=== PATIENT | male | born 1965 | race Caucasian/White ===

== ENCOUNTER → 2016-10-02 | Outpatient (CLI) | payer BC ==
[2015-09-09 08:51] VITALS: BP 100/68
--- NOTE | 2016-10-02 18:08 | MRI ---
Indication: Peroneal nerve disorder and pain. Exam: MRI right knee without contrast . Technique: Routine multiplanar multisequence imaging was performed through the right knee without co ntrast. Findings: The anterior and posterior cruciate ligaments are intact and normal signal intensity throu ghout. There is abnormal linear signal along the posterior horn of the medial meniscus extending to the inferior edge anteriorly. There is some mild linear signal along the posterior horn of the later al meniscus which may slightly extend inferiorly but is more ill-defined. No displaced meniscal frag ment can be seen. The collateral ligaments are normal. The bone marrow signal is normal throughout. There is a small subchondral cyst along the tibial plateau medially and there is a tiny joint effusi on. There is prominent asymmetry of the femoral notch and moderate lateral tilting of the patella wi th diffuse moderate thinning of the patellar cartilage which is most severe along the lateral facet. The surrounding retinacular fibers are intact. Impression: Small horizontal degenerative tear along the posterior horn of the medial meniscus extending mediall y and inferiorly. Moderate meniscoid degenerative change throughout the lateral meniscus with a questionable small sub tle horizontal tear posteriorly . Tiny joint effusion. 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 Reported By:
== END ==
LOC: RAD 09:16
PROVIDERS: ATTEND Neurological Surgery
DX: G57.33 Lesion of lateral popliteal nerve, bilateral lower limbs (principal)
CPT/HCPCS: 73721

== ENCOUNTER 2017-02-16 20:57 | Emergency (ER) | payer BC ==
[2017-02-16 21:06] VITALS: BP 167/99; BMI 33.3
--- NOTE | 2017-02-16 21:58 | DR.GENAD ---
HPI - Complaint/Symptoms Chief Complaint:: PT STATES THAT HIS CHEST HAS FELT TIGHT FOR TWO WEEKS AND HE IS VOMITING Self Treatment fo Chief Complaint: SAW [facility] YESTERDAY AND WAS GIVEN CEFDINIR, STEROID, NASAL SPRAY AND TOLD HE HAD FLUID IN HIS EAR AND SINUS INFECTION - Source History Provided: Patient - Mode of Arrival Mode of Arrival: Ambulatory - Timing Onset of Chief Complaint: 02/14/17 PMH - PMH Past Medical History: Yes Past Medical History: Depression, Diabetes, GERD, Gout, Hypertension, Hypothyroidism, Liver Disease, Sleep Apnea Past Surgical History: Yes Surgical History: Ortho Surgery - Family History History of Family Medical Conditions: Yes Family Medical History: Diabetes Mellitus, [place], Coronary Artery Disease, Heart Failure, Hypertension - Social History Do you use any recreational Drugs:: No - infectious screening Have you traveled outside the country in the last 6 months?: No ROS - Review of Systems Eyes: No Symptoms Reported ENTM: No Symptoms Reported Respiratoy: No Symptoms Reported Cardiovascular: No Symptoms Reported Gastrointestinal/Abdominal: No Symptoms Reported Genitourinary: No Symptoms Reported Neurological: No Symptoms Reported Musculoskeletal: No Symptoms Reported Integumentary: No Symptoms Reported Hematologic/Lymphatic: No Symptoms Reported Endocrine: No Symptoms Reported Psychiatric: No Symptoms Reported All Other Systems: Reviewed and Negative PE - Vital Signs Vitals: Temperature 98.3 F Pulse Rate 61 Respiratory Rate 18 Blood Pressure [Right Arm] 100/68 Blood Pressure [Left Arm] 115/72 Blood Pressure 167/99 O2 Sat by Pulse Oximetry 97 - General Limitations: No Limitations General Appearance: Alert - Head Head Exam: Normal Inspection, Atraumatic - Eyes Eye exam: Normal Appearance, PERRL, EOMI - ENT ENT Exam: Normal Exam External Ear Exam: Normal External Inspection TM/Canal Exam: Bilateral Normal Nose Exam: Normal Nose Exam Mouth Exam: Normal Inspection Throat Exam: Normal Inspection - Neck Neck Exam: Normal Inspection, Full ROM - Chest Chest Inspection: Normal Inspection, Symmetric Chest Wall Rise - Respiratory Respiratory Exam: Normal Lung Sounds Bilat Respiratory Exam: Bilateral Clear to Auscultation - Cardiovascular Cardiovascular Exam: Regular Rate, Normal Rhythm - Abdominal Exam Abdominal Exam: Normal Inspection, Normal Bowel Sounds Abdominal Tenderness: negative: RUQ, RLQ, LUQ, LLQ, Epigastrium, Suprapubic, Diffuse, Mild, Moderate, Severe, Other - Extremities Extremities Exam: Normal Inspection, Full ROM - Back Back Exam: Normal Inspection, Full ROM - Neurologic Neurological Exam: Alert, Oriented X3, CN II-XII Intact - Psychiatric Psychiatric Exam: Normal Affect, Normal Mood - Skin Skin Exam: Warm, Dry, Intact - Diagnosis Discharge Problem: Bronchitis - Discharge Plan Condition: Stable - Follow ups/Referrals Follow ups/Referrals: Scot Whitfield [Primary Care Provider] - 3 days - Instructions
[2017-02-16] MEDS ORDERED: PHENERGAN W/CODEINE 6.25MG/10MG PO ONE (21:59)
[2017-02-16] MEDS ORDERED: ROBITUSSIN AC ONE (22:06)
[2017-02-16] MEDS ORDERED: PHENERGAN W/CODEINE 6.25MG/10MG ONE (22:09)
== END 2017-02-16 22:12 | disposition home or self-care (01) ==
LOC: ER 21:10
DX: J40 Bronchitis, not specified as acute or chronic (principal)
CPT/HCPCS: 99282

== ENCOUNTER → 2017-07-07 | Outpatient (CLI) | payer BC ==
--- NOTE | 2017-07-07 17:50 | MRI ---
MRI of the lumbar spine without gadolinium. Indication: Radiculopathy with lower back pain. Patient has a history of prior lumbar surgery. Technique: Multiplanar MRI images of the lumbar spine was performed without the administration of con there is multilevel discogenic degenerative the skis which will be discussed on a level by level bas is. There is no acute fracture. The conus terminates normally at L1. No evidence of osteomyelitis see n. T11-T12. There is a small circumferential disc bulge with mild facet arthropathy causing mild narrowi ng of the left neural foramen. No central canal stenosis is seen. T12-L1: There is no disc disease. There is moderate facet arthropathy with ligamentum flavum hypertro phy. No neural foraminal or central canal stenosis is seen. L1-L2. There is circumferential disc bulge with central superior extrusion causing mild central canal stenosis. There is mild facet arthropathy and ligamentum flavum hypertrophy. No neural foraminal [place] rowing is seen. L2-L3. No disc disease is seen. There is moderate facet arthropathy. No central canal or neural patricia inal stenosis seen. L3-L4: No disc disease is seen. There is moderate to severe facet arthropathy with marked ligamentum flavum hypertrophy. The right hypertrophy 5 ligament is deforming the sac. There is minimal central c anal stenosis. No neural foraminal stenosis is seen. L4-L5. There is incorporation of disc material without disc disease. There is moderate facet arthropa thy without neural foraminal or central canal stenosis L5-S1. There is fusion across the disc space w ith slight anterolisthesis of L5 on S1. Mild facet arthropathy is present. There is no neural foramin al or central canal stenosis Conclusion: Multilevel discogenic degenerative disease as described above greatest at L1-L2 with supe rior extrusion of the disc. No sequestration is seen. Reported By:
== END ==
LOC: RAD 14:56
PROVIDERS: ATTEND Neurological Surgery
DX: M54.16 Radiculopathy, lumbar region (principal)
CPT/HCPCS: 72148

== ENCOUNTER 2021-11-24 10:49 | Observation (INO) ==
[2021-11-24 11:15] VITALS: BMI 31.6
[2021-11-24 11:17] LABS: BASOPHILS % (AUTO) 0.3 % (0.2-1.0); EOSINOPHILS # (AUTO) 0.3 x10^3/uL (0.0-0.2); EOSINOPHILS % (AUTO) 4.2 % (0.9-2.9); HEMATOCRIT 46.6 % (42.0-54.0); LYMPHOCYTES # (AUTO) 1.3 X10^3/uL (1.3-2.9); LYMPHOCYTES % (AUTO) 20.4 % (21.0-51.0); MEAN CORPUSCULAR HEMOGLOBIN 28.7 pg (27.0-34.0); MEAN CORPUSCULAR HGB CONC 34.3 g/dL (33.0-35.0); MEAN CORPUSCULAR VOLUME 83.6 fL (80.0-100.0); MEAN PLATELET VOLUME 8.6 fL (7.4-11.0); MONOCYTES # (AUTO) 0.8 x10^3/uL (0.3-0.8); MONOCYTES % (AUTO) 13.3 % (0.0-13.0); NEUTROPHILS # (AUTO) 3.9 x10^3/uL (2.2-4.8); NEUTROPHILS % (AUTO) 61.8 % (42.0-75.0); RED BLOOD COUNT 5.57 X10^6/uL (4.7-6.0); RED CELL DISTRIBUTION WIDTH 13.8 % (11.6-16.5); WHITE BLOOD COUNT 6.4 X10^3/uL (3.6-10.0)
--- NOTE | 2021-11-24 11:19 | DR.WEAKNES ---
HPI Time Seen Time Seen by Provider: 11/24/21 11:00 Primary Care Physician Primary Care Physician: KRYSTAL Complaints Chief Complaint:: PT STATES HE WENT TO DR. RICE'S OFFICE WITH C/O NUMBNESS ON THE RIGHT SIDE OF HIS HEAD AND RIGHT ARM. DR. RICE CALLED AND GAVE REPORT TO US ON PT. PT DENIES PAIN. HE STATES HIS BS WAS [address] RICE'S OFFICE AND THAT HE HASN'T TAKEN HIS BS MEDS THIS MORNING BECAUSE HE WAS FEELING NAUSEATED. Self Treatment fo Chief Complaint: NONE Source History Provided: Patient Mode of Arrival Mode of Arrival: Ambulatory Timing Onset of Chief Complaint: 11/24/21 PMH PMH Past Medical History: Yes Past Medical History: Diabetes, Dyslipidemia, Hypertension and Hypothyroidism Past Surgical History: Yes Surgical History: Ortho Surgery Family History History of Family Medical Conditions: Yes Family Medical History: Diabetes Mellitus, Cancer, [place], Coronary Artery Disease and Hypertension Social History Does any household member use tobacco: No Alcohol Use: None Do you use any recreational Drugs:: No Lives With: Family Lives Where: Home Infectious screening In the last 2 months have you had wt loss of >10#?: NO Have you had fever, night sweats or hemotysis?: No Have you traveled outside the country in the last 6 months?: No Isolation: Standard PE Vital Signs Vitals: Temperature 98.8 F Pulse Rate 69 Respiratory Rate 20 Blood Pressure [Right Arm] 128/73 Blood Pressure [Left Arm] 135/76 Blood Pressure 155/89 O2 Sat by Pulse Oximetry 98 ROR Labs Reviewed Result Diagrams: 11/26/21 05:15 11/26/21 05:15 Laboratory: WBC 6.4 X10^3/uL (3.6-10.0) 11/24/21 11:05 RBC 5.57 X10^6/uL (4.7-6.0) 11/24/21 11:05 Hgb 16.0 g/dL (13.5-18.0) 11/24/21 11:05 Hct 46.6 % (42.0-54.0) 11/24/21 11:05 MCV 83.6 fL (80.0-100.0) 11/24/21 11:05 MCH 28.7 pg (27.0-34.0) 11/24/21 11:05 MCHC 34.3 g/dL (33.0-35.0) 11/24/21 11:05 RDW 13.8 % (11.6-16.5) 11/24/21 11:05 Plt Count 146 X10^3/uL (150.0-450.0) L 11/24/21 11:05 MPV 8.6 fL (7.4-11.0) 11/24/21 11:05 Neut % (Auto) 61.8 % (42.0-75.0) 11/24/21 11:05 Lymph % (Auto) 20.4 % (21.0-51.0) L 11/24/21 11:05 [place] % (Auto) 13.3 % (0.0-13.0) H 11/24/21 11:05 Eos % (Auto) 4.2 % (0.9-2.9) H 11/24/21 11:05 Baso % (Auto) 0.3 % (0.2-1.0) 11/24/21 11:05 Neut # (Auto) 3.9 x10^3/uL (2.2-4.8) 11/24/21 11:05 Lymph # (Auto) 1.3 X10^3/uL (1.3-2.9) 11/24/21 11:05 [place] # (Auto) 0.8 x10^3/uL (0.3-0.8) 11/24/21 11:05 Eos # (Auto) 0.3 x10^3/uL (0.0-0.2) H 11/24/21 11:05 Baso # (Auto) 0.0 X10^3/uL (0.0-0.1) 11/24/21 11:05 Absolute Nucleated RBC 0.2 /100WBC 11/24/21 11:05 PT 14.8 SECONDS (11.8-14.3) 11/24/21 11:05 INR Target Range - 11/24/21 11:05 INR 1.20 (0.8-1.3) 11/24/21 11:05 APTT 27.0 SECONDS (22.9-36.5) 11/24/21 11:05 PTT Comment - 11/24/21 11:05 Fibrinogen 447 mg/dL (239-489) 11/24/21 11:05 Sodium 133 mmol/L (136-145) L 11/24/21 11:05 Corrected Sodium 136 mmol/L (136-145) 11/24/21 11:05 Potassium 3.6 mmol/L (3.5-5.1) 11/24/21 11:05 Chloride 100 mmol/L (98-107) 11/24/21 11:05 Carbon Dioxide 24.7 mmol/L (21-32) 11/24/21 11:05 BUN 13 mg/dL (7-18) 11/24/21 11:05 Creatinine 1.00 mg/dL (0.70-1.30) 11/24/21 11:05 Est GFR (MDRD) Af Amer > 60 (>60) 11/24/21 11:05 Est GFR (MDRD) Non-Af > 60 (>60) 11/24/21 11:05 Glucose 224 mg/dL (65-99) H 11/24/21 11:05 POC Glucose (mg/dL) 232 mg/dL (65-99) H 11/24/21 11:07 Calcium 8.3 mg/dL (8.5-10.1) L 11/24/21 11:05 Corrected Calcium 8.9 mg/dL (8.5-10.1) 11/24/21 11:05 Total Bilirubin 0.50 mg/dL (0.2-1.0) 11/24/21 11:05 AST 41 Units/L (15-37) H 11/24/21 11:05 ALT 65 Units/L (12-78) 11/24/21 11:05 Alkaline Phosphatase 101 Units/L (46-116) 11/24/21 11:05 Total Protein 7.4 g/dL (6.4-8.2) 11/24/21 11:05 Albumin 3.2 g/dL (3.4-5.0) L 11/24/21 11:05 Globulin 4.2 g/dL (2.5-4.5) 11/24/21 11:05 Albumin/Globulin Ratio 0.8 Ratio (1.1-2.1) L 11/24/21 11:05 Triglycerides 81 mg/dL (0-150) 11/24/21 11:05 Cholesterol 115 mg/dL (0-200) 11/24/21 11:05 LDL Cholesterol, Calc 74 mg/dL (0-100) 11/24/21 11:05 HDL Cholesterol 25 mg/dL (40-60) L 11/24/21 11:05 Cholesterol/HDL Ratio 4.6 (0.0-5.0) 11/24/21 11:05 SARS-CoV-2 (PCR) Negative (NEGATIVE) 11/24/21 15:34 Opioid Opioid Risk Tool Age (Ward box if 16-45): No History of Preadolescent Sexual Abuse: No Total: 0 Total Score Risk Category: Low Risk Copyright: Bijan GREEN predicting aberrant behaviors
[2021-11-24 11:27] LABS: ALANINE AMINOTRANSFERASE 65 Units/L (12-78); ALBUMIN 3.2 g/dL (3.4-5.0); ALKALINE PHOSPHATASE 101 Units/L (46-116); ASPARTATE AMINO TRANSFERASE 41 Units/L (15-37); BLOOD UREA NITROGEN 13 mg/dL (7-18); CALCIUM 8.3 mg/dL (8.5-10.1); CARBON DIOXIDE 24.7 mmol/L (21-32); CHLORIDE 100 mmol/L (98-107); CHOL/HDL RATIO 4.6 (0.0-5.0); CHOLESTEROL 115 mg/dL (0-200); COR CA(FOR HYPOALB) 8.9 mg/dL (8.5-10.1); COR NA(FOR HYPERGLY) 136 mmol/L (136-145); HDL CHOLESTEROL 25 mg/dL (40-60); SODIUM 133 mmol/L (136-145); TOTAL PROTEIN 7.4 g/dL (6.4-8.2); TRIGLYCERIDES 81 mg/dL (0-150); eGFR NON BLACK RACES > 60 (>60)
--- NOTE | 2021-11-24 11:30 | CT ---
HISTORYRIGHT SIDE NUMBNESSConcern for acute CVA.Study: CT brain without contrastComparison: None available.Technique: Multiple axial images of the brain were obtained from the skull base to the vertex [without] administration of IV contrast.Findings: [No acute intraparenchymal hemorrhage or cytotoxic edema is identified.] [No extra-axial fluid collections are seen.] [No alteration in the attenuation of the brain parenchyma can be identified to suggest acute or subacute ischemic change.] However, if the patients symptoms are clinically & neurologically concerning for an acute ischemic event, then MR imaging of the brain with DWI sequencing could be considered to exclude an acute CVA (based on this patient?s clinical presentation and the specific medical circumstances). If there remains strong concern for an intracranial neoplasm or mass, then follow-up with CT or MR imaging of the brain with IV contrast is recommended for improved inspection (which would be more sensitive for the assessment of any intracranial neoplasia). [The ventricular system is symmetric and nondilated.] The visualized paranasal sinuses and mastoid air cells are relatively clear on this examination as well.IMPRESSION:1. No acute intracranial process or hemorrhage identified.However, if the patients symptoms are clinically & neurologically concerning for an acute ischemic event, then MR imaging of the brain with DWI sequencing could be considered to exclude an acute CVA (based on this patient? s clinical presentation and the neurological assessment).Electronically signed by: MICHEAL CABRALES III (Nov 24, 2021 11:28:58)
--- NOTE | 2021-11-24 11:51 | TELESTROKE ---
[facility] Consult Date of Consult Date of Exam: 11/24/21 Time of Arrival to the ED: 10:49 Allergies Allergies Allergy/AdvReac Type Severity Reaction Status Date / Time quinapril [From Accupril] Allergy Verified 01/06/20 10:27 Vital Signs Vital Signs: Temp Pulse Resp BP BP BP Pulse Ox 01/06/20 14:00 135/76 01/06/20 15:04 128/73 11/24/21 11:09 98.8 F 69 20 155/89 98 11/08/21 15:00 143/74 O2 Del Method 01/06/20 14:00 01/06/20 15:04 11/24/21 11:09 Room Air 11/08/21 15:00 History of Present Illness History of Present Illness: [facility] Tele[facility] Consult Services Date of Service: 11/24/2021 11:06:57 Diagnosis: I63.9 - Cerebrovascular accident (CVA), unspecified mechanism (HCC) Impression: This is a 56 yo M, who presents to the ED with the acute onset of R sided weakness and numbness. [place] like he was wobbling when walking yesterday. He was last known to be in his normal state of health at some point yesterday, but did not have the R sided deficits when going to bed at 9PM. Rather, he woke up with it. On arrival to the ED his symptoms persisted, although no weakness found. BP was found to be 155 systolic. Physical exam revealing for NIHSS of 2 Labs pending Imaging pending official read Etiology of presentation could be from an ischemic event -If official CTH shows no bleed, then allow permissive HTN to 220/110 and below. ASA 81. -MRI brain w/o con -Head and neck vessel imaging -2D echo -Labs for: UA, Utox, thiamine, ammonia, RPR, TSH, B12, ABG, alcohol Metrics: Last Known Well: 11/23/2021 21:00:00 [facility] Notification Time: 11/24/2021 11:06:57 Arrival Time: 11/24/2021 10:49:00 Stamp Time: 11/24/2021 11:06:57 Initial Response Time: 11/24/2021 11:09:04 Symptoms: R sided weakness. NIHSS Start Assessment Time: 11/24/2021 11:10:05 Patient is not a candidate for Thrombolytic. Thrombolytic Medical Decision: 11/24/2021 11:10:07 Patient was not deemed candidate for Thrombolytic because of following reasons: Last Well Known Above 4.[address] head was reviewed. ED Physician notified of diagnostic impression and management plan on 11/24/2021 11:45:29 Advanced Imaging: Advanced Imaging Not Recommended because: Clinical presentation is not suggestion of LVO or Low clinical suspicion of LVO based on presentation Our recommendations are outlined below. Recommendations: Stroke/Telemetry Floor Neuro Checks Bedside Swallow Eval DVT Prophylaxis IV Fluids, Normal Saline Head of Bed 30 Degrees Euglycemia and Avoid Hyperthermia (PRN Acetaminophen) History of Present Illness: Patient is a 56 year old Male. Patient was brought by EMS for symptoms of R sided weakness. This is a 56 yo M, who presents to the ED with the acute onset of R sided weakness and numbness. [place] like he was wobbling when walking yesterday. He was last known to be in his normal state of health at some point yesterday, but did not have the R sided deficits when going to bed at 9PM. Rather, he woke up with it. On arrival to the ED his symptoms persisted, although no weakness found. BP was found to be 155 systolic. He was taken immediately for CTH and further evaluation. Decision on whether or not to give tPA was made based on indications, contraindications, and patient's disability status and preference. Social History: Smoking: No Alcohol Use: No Drug Use: No Family History:Unable to obtain due to Patient Status Review of System: 14 Points Review of Systems was performed and was negative except mentioned in HPI. Anticoagulant use: Unknown Antiplatelet use: Unknown Allergies: NKDA Examination: BP(155//89), Pulse(69), Blood Glucose(227) 1A: Level of Consciousness - Alert; keenly responsive + 0 1B: Ask Month and Age - Both Questions Right + 0 1C: Blink Eyes & Squeeze Hands - Performs Both Tasks + 0 2: Test Horizontal Extraocular Movements - Normal + 0 3: Test Visual Marquez - No Visual Loss + 0 4: Test Facial Palsy (Use Grimace if Obtunded) - Normal symmetry + 0 5A: Test Left Arm Motor Drift - No Drift for 10 Seconds + 0 5B: Test Right Arm Motor Drift - No Drift for 10 Seconds + 0 6A: Test Left Leg Motor Drift - No Drift for 5 Seconds + 0 6B: Test Right Leg Motor Drift - No Drift for 5 Seconds + 0 7: Test Limb Ataxia (FNF/Heel-Hedrick) - No Ataxia + 0 8: Test Sensation - Mild-Moderate Loss: Less Sharp/More Dull + 1 9: Test Language/Aphasia - Normal; No aphasia + 0 10: Test Dysarthria - Mild-Moderate Dysarthria: Slurring but can be understood + 1 11: Test Extinction/Inattention - No abnormality + 0 NIHSS Score: 2 Pre-Morbid Modified Hawkins Scale: 0 Points = No symptoms at all Patient/Family was informed the Neurology Consult would occur via TeleHealth consult by way of interactive audio and video telecommunications and consented to receiving care in this manner. Patient is being evaluated for possible acute neurologic impairment and high probability of imminent or life-threatening deterioration. I spent total of 30 minutes providing care to this patient, including time for face to face visit via telemedicine, review of medical records, imaging studies and discussion of findings with providers, the patient and/or family. Dr Jose Linares [facility] Case [id number] Medical Decision Making Result Diagrams: 11/24/21 11:05 11/24/21 11:05 Labs: Laboratory Results - last 24 hr 11/24/21 11/24/21 11/24/21 11:05 11:05 11:05 WBC 6.4 RBC 5.57 Hgb 16.0 Hct 46.6 MCV 83.6 MCH 28.7 MCHC 34.3 RDW 13.8 Plt Count 146 L MPV 8.6 Neut % (Auto) 61.8 Lymph % (Auto) 20.4 L [place] % (Auto) 13.3 H Eos % (Auto) 4.2 H Baso % (Auto) 0.3 Neut # (Auto) 3.9 Lymph # (Auto) 1.3 [place] # (Auto) 0.8 Eos # (Auto) 0.3 H Baso # (Auto) 0.0 Absolute Nucleated RBC 0.2 PT 14.8 INR Target Range - INR 1.20 APTT 27.0 PTT Comment - Fibrinogen 447 Sodium 133 L Corrected Sodium 136 Potassium 3.6 Chloride 100 Carbon Dioxide 24.7 BUN 13 Creatinine 1.00 Est GFR (MDRD) Af Amer > 60 Est GFR (MDRD) Non-Af > 60 Glucose 224 H POC Glucose (mg/dL) Calcium 8.3 L Corrected Calcium 8.9 Total Bilirubin 0.50 AST 41 H ALT 65 Alkaline Phosphatase 101 Total Protein 7.4 Albumin 3.2 L Globulin 4.2 Albumin/Globulin Ratio 0.8 L Triglycerides 81 Cholesterol 115 LDL Cholesterol, Calc 74 HDL Cholesterol 25 L Cholesterol/HDL Ratio 4.6 11/24/21 11:07 WBC RBC Hgb Hct MCV MCH MCHC RDW Plt Count MPV Neut % (Auto) Lymph % (Auto) [place] % (Auto) Eos % (Auto) Baso % (Auto) Neut # (Auto) Lymph # (Auto) [place] # (Auto) Eos # (Auto) Baso # (Auto) Absolute Nucleated RBC PT INR Target Range INR APTT PTT Comment Fibrinogen Sodium Corrected Sodium Potassium Chloride Carbon Dioxide BUN Creatinine Est GFR (MDRD) Af Amer Est GFR (MDRD) Non-Af Glucose POC Glucose (mg/dL) 232 H Calcium Corrected Calcium Total Bilirubin AST ALT Alkaline Phosphatase Total Protein Albumin Globulin Albumin/Globulin Ratio Triglycerides Cholesterol LDL Cholesterol, Calc HDL Cholesterol Cholesterol/HDL Ratio
--- NOTE | 2021-11-24 13:31 | MRI ---
HISTORYRT SIDE WEAKNESSSTUDYBRAIN W/O CONCOMPARISONCT head dated 11/24/2021TECHNIQUEMultiplanar multi sequences images through the brain were performed without contrast.FINDINGSThe ventricles are normal in size and symmetric, there is no evidence of an acute infarct, no focal areas of restricted diffusion. There is normal midline anatomy. No sellar masses. The cervicocranial junction is unremarkable no nasopharyngeal masses. The main arterial and venous flow voids are present, there is no abnormal signal in the mastoid cells included paranasal sinuses, no orbital masses. No intra or extra-axial fluid collections.FLAIR images demonstrate scattered subcortical areas of high signal there is also mild periventricular areas of high signal. There is an old lacunar infarct in the right aspect of the mango. There is no evidence of abnormal intraparenchymal susceptibility artifact. There is symmetry of the cavernous sinus.IMPRESSIONNo evidence of acute infarct, no acute intracranial abnormalities.Mild periventricular and subcortical white matter changes could represent small vessel disease, vasculitis or Lyme disease less likely demyelinization. Old lacunar infarct in the right aspect of the mango.Electronically signed by: Samantha Whelan (Nov 24, 2021 13:30:41)
[2021-11-24] MEDS ORDERED: ASPIRIN PO ONE (15:21)
[2021-11-24] MEDS: NS 1,000 ML IV 1,000 ML IV SCH (18:36)
[2021-11-24] MEDS ORDERED: POTASSIUM CHLORIDE LIQ 20 MEQ UDC PO PRN (19:36)
[2021-11-24] MEDS ORDERED: POTASSIUM CHL 60 MEQ/NS 0.45% 500 ML IV PRN (19:36)
[2021-11-24] MEDS ORDERED: KLOR-CON PO PRN (19:36)
[2021-11-24] MEDS ORDERED: POTASSIUM CHL 40 MEQ/NS 0.45% 500 ML IV PRN (19:36)
[2021-11-24] MEDS ORDERED: K-RIDER 10 MEQ/NS 100 ML 10 MEQ/100 ML BAG IV PRN (19:36)
[2021-11-24] MEDS ORDERED: MICRO K EXTEN CAP 10 MEQ PO PRN (19:36)
[2021-11-24] MEDS ORDERED: K-DUR TAB 20 MEQ PO PRN (19:36)
[2021-11-24] MEDS: SNACK - Diabetic Appropriate PO SCH (21:57)
[2021-11-24] MEDS: LOVENOX INJ 30 MG SYR SC SCH (21:59)
[2021-11-24] MEDS: NovoLIN R (or HumuLIN R) SUBCUT PRN (23:07)
[2021-11-24 23:30] LABS: BILIRUBIN,URINE NEGATIVE (NEGATIVE); BLOOD/HEMOGLOBIN,URINE 1+ (NEGATIVE); GLUCOSE, URINE 3+ (NEGATIVE); KETONES,URINE NEGATIVE (NEGATIVE); LEUKOCYTE ESTERASE ,URINE NEGATIVE (NEGATIVE); NITRITES,URINE NEGATIVE (NEGATIVE); PROTEIN,URINE NEGATIVE (NEGATIVE); UROBILINOGEN,URINE 1+ (NORMAL)
[2021-11-24 23:35] LABS: APPEARANCE,URINE CLEAR (CLEAR); COLOR,URINE YELLOW (YELLOW)
[2021-11-24 23:40] LABS: BACTERIA,URINE NEGATIVE /HPF (NEGATIVE); RBC,URINE 0-2 /HPF (0-3); SQUAMOUS EPITHELIAL CELL,UR RARE /HPF (NEGATIVE)
[2021-11-24 23:41] LABS: CALCIUM OXALATE CRYSTALS,UR MODERATE /HPF (NEGATIVE)
[2021-11-25] LABS: CKMB % 2.1 % (<4); CREATINE KINASE 48 Units/L (39-308); CREATINE KINASE MB < 1.0 ng/mL (0-4.0)
[2021-11-25 04:23] LABS: BASOPHILS % (AUTO) 0.3 % (0.2-1.0); EOSINOPHILS # (AUTO) 0.4 x10^3/uL (0.0-0.2); EOSINOPHILS % (AUTO) 6.1 % (0.9-2.9); HEMATOCRIT 43.4 % (42.0-54.0); HEMOGLOBIN 14.9 g/dL (13.5-18.0); LYMPHOCYTES # (AUTO) 1.7 X10^3/uL (1.3-2.9); LYMPHOCYTES % (AUTO) 27.6 % (21.0-51.0); MEAN CORPUSCULAR HEMOGLOBIN 28.5 pg (27.0-34.0); MEAN CORPUSCULAR HGB CONC 34.3 g/dL (33.0-35.0); MEAN CORPUSCULAR VOLUME 83.1 fL (80.0-100.0); MEAN PLATELET VOLUME 8.9 fL (7.4-11.0); MONOCYTES % (AUTO) 16.5 % (0.0-13.0); NEUTROPHILS # (AUTO) 3.1 x10^3/uL (2.2-4.8); NEUTROPHILS % (AUTO) 49.5 % (42.0-75.0); RED BLOOD COUNT 5.22 X10^6/uL (4.7-6.0); WHITE BLOOD COUNT 6.3 X10^3/uL (3.6-10.0)
[2021-11-25 04:34] LABS: ALANINE AMINOTRANSFERASE 66 Units/L (12-78); ALBUMIN 2.7 g/dL (3.4-5.0); ALKALINE PHOSPHATASE 91 Units/L (46-116); ASPARTATE AMINO TRANSFERASE 49 Units/L (15-37); BLOOD UREA NITROGEN 15 mg/dL (7-18); CALCIUM 8.1 mg/dL (8.5-10.1); CHLORIDE 104 mmol/L (98-107); CKMB % 2.3 % (<4); COR CA(FOR HYPOALB) 9.1 mg/dL (8.5-10.1); COR NA(FOR HYPERGLY) 139 mmol/L (136-145); CREATINE KINASE 44 Units/L (39-308); CREATINE KINASE MB < 1.0 ng/mL (0-4.0); CREATININE 0.75 mg/dL (0.70-1.30); MAGNESIUM 1.8 mg/dL (1.7-2.9); SODIUM 137 mmol/L (136-145); TOTAL PROTEIN 6.5 g/dL (6.4-8.2); eGFR NON BLACK RACES > 60 (>60)
[2021-11-25] MEDS: NS 1,000 ML IV 1,000 ML IV SCH ×2 (05:53→21:32)
[2021-11-25 08:39] LABS: CKMB % 2.8 % (<4); CREATINE KINASE MB 1.3 ng/mL (0-4.0)
--- NOTE | 2021-11-25 08:48 | DR.H&P ---
H&P History & Physical for Day of: H&P Date: 11/24/21 Chief Complaint Chief Complaint: Right facial numbness right arm numbness and weakness and right leg numbness and weakness. Allergies Allergies Allergy/AdvReac Type Severity Reaction Status Date / Time quinapril [From Accupril] Allergy Verified 01/06/20 10:27 History of Present Illness History of Present Illness: This is a 56-year-old white male who came to the office this morning complaining of right facial numbness right arm numbness and weakness and right leg numbness and weakness as well. Started early in the morning he reported he could not give me a time. His blood pressure was noted to be elevated with systolic 150s to 170s over 90s. I called the ER and told him what was going on with him and sent him directly over there for further evaluation and treatment. Work-up in the emergency department revealed a normal MRI and normal CT scan that did not show acute ischemia or bleed. Labs were re latively okay. We went ahead and admitted him upstairs for further observation and treatment. He was started on Plavix and aspirin daily and continued on his statin medication and antihypertensive medications. Past Medical History Past Medical History: Diabetes, Dyslipidemia, Hypertension and Hypothyroidism Past Surgical History Surgical History: Ortho Surgery Family History Family Medical History: Diabetes Mellitus, Cancer, NH, Coronary Artery Disease, Heart Failure and Hypertension Social History Does any household member use tobacco: No Alcohol Use: None Drug Use: None Medications Home Medications: quinapril [From Accupril] Allergy (Verified 01/06/20 10:27) CONTINUE taking the following medications alprazolam 0.5 mg tablet 0.5 tab PO TID PRN Anxiety 11/24/21 [History] aspirin 81 mg chewable tablet 1 tab PO DAILY 11/24/21 [History] atorvastatin 20 mg tablet 20 tab PO HS 11/24/21 [History] carvedilol 6.25 mg tablet 6.25 tab PO BID 11/24/21 [History] celecoxib 200 mg capsule 200 cap PO DAILY 11/24/21 [History] oxycodone 20 mg tablet 20 tab PO QID PRN Pain 11/24/21 [History] pantoprazole 40 mg tablet,delayed release 40 tab PO DAILY 11/24/21 [History] tizanidine 4 mg tablet 4 tab PO TID PRN Muscle Spasm 11/24/21 [History] valsartan 160 mg tablet 160 tab PO DAILY 11/24/21 [History] Labs Result Diagrams: 11/25/21 04:00 11/25/21 04:00 Labs: Laboratory WBC 6.3 X10^3/uL (3.6-10.0) 11/25/21 04:00 RBC 5.22 X10^6/uL (4.7-6.0) 11/25/21 04:00 Hgb 14.9 g/dL (13.5-18.0) 11/25/21 04:00 Hct 43.4 % (42.0-54.0) 11/25/21 04:00 MCV 83.1 fL (80.0-100.0) 11/25/21 04:00 MCH 28.5 pg (27.0-34.0) 11/25/21 04:00 MCHC 34.3 g/dL (33.0-35.0) 11/25/21 04:00 RDW 14.0 % (11.6-16.5) 11/25/21 04:00 Plt Count 127 X10^3/uL (150.0-450.0) L 11/25/21 04:00 MPV 8.9 fL (7.4-11.0) 11/25/21 04:00 Neut % (Auto) 49.5 % (42.0-75.0) 11/25/21 04:00 Lymph % (Auto) 27.6 % (21.0-51.0) 11/25/21 04:00 [place] % (Auto) 16.5 % (0.0-13.0) H 11/25/21 04:00 Eos % (Auto) 6.1 % (0.9-2.9) H 11/25/21 04:00 Baso % (Auto) 0.3 % (0.2-1.0) 11/25/21 04:00 Neut # (Auto) 3.1 x10^3/uL (2.2-4.8) 11/25/21 04:00 Lymph # (Auto) 1.7 X10^3/uL (1.3-2.9) 11/25/21 04:00 [place] # (Auto) 1.0 x10^3/uL (0.3-0.8) H 11/25/21 04:00 Eos # (Auto) 0.4 x10^3/uL (0.0-0.2) H 11/25/21 04:00 Baso # (Auto) 0.0 X10^3/uL (0.0-0.1) 11/25/21 04:00 Absolute Nucleated RBC 0.1 /100WBC 11/25/21 04:00 PT 14.7 SECONDS (11.8-14.3) 11/25/21 04:00 INR Target Range - 11/25/21 04:00 INR 1.19 (0.8-1.3) 11/25/21 04:00 APTT 28.0 SECONDS (22.9-36.5) 11/25/21 04:00 PTT Comment - 11/25/21 04:00 Fibrinogen 447 mg/dL (239-489) 11/24/21 11:05 Sodium 137 mmol/L (136-145) 11/25/21 04:00 Corrected Sodium 139 mmol/L (136-145) 11/25/21 04:00 Potassium 4.0 mmol/L (3.5-5.1) 11/25/21 04:00 Chloride 104 mmol/L (98-107) 11/25/21 04:00 Carbon Dioxide 28.0 mmol/L (21-32) 11/25/21 04:00 BUN 15 mg/dL (7-18) 11/25/21 04:00 Creatinine 0.75 mg/dL (0.70-1.30) 11/25/21 04:00 Est GFR (MDRD) Af Amer > 60 (>60) 11/25/21 04:00 Est GFR (MDRD) Non-Af > 60 (>60) 11/25/21 04:00 Glucose 184 mg/dL (65-99) H 11/25/21 04:00 POC Glucose (mg/dL) 148 mg/dL (65-99) H 11/25/21 05:52 Calcium 8.1 mg/dL (8.5-10.1) L 11/25/21 04:00 Corrected Calcium 9.1 mg/dL (8.5-10.1) 11/25/21 04:00 Magnesium 1.8 mg/dL (1.7-2.9) 11/25/21 04:00 Total Bilirubin 0.30 mg/dL (0.2-1.0) 11/25/21 04:00 AST 49 Units/L (15-37) H 11/25/21 04:00 ALT 66 Units/L (12-78) 11/25/21 04:00 Alkaline Phosphatase 91 Units/L (46-116) 11/25/21 04:00 Creatine Kinase 44 Units/L (39-308) 11/25/21 04:00 CK-MB (CK-2) < 1.0 ng/mL (0-4.0) 11/25/21 04:00 CK/CKMB % Calc 2.3 % (<4) 11/25/21 04:00 Troponin I High Sens 7.9 ng/L (4.0-60.0) 11/25/21 04:00 Total Protein 6.5 g/dL (6.4-8.2) 11/25/21 04:00 Albumin 2.7 g/dL (3.4-5.0) L 11/25/21 04:00 Globulin 3.8 g/dL (2.5-4.5) 11/25/21 04:00 Albumin/Globulin Ratio 0.7 Ratio (1.1-2.1) L 11/25/21 04:00 Triglycerides 81 mg/dL (0-150) 11/24/21 11:05 Cholesterol 115 mg/dL (0-200) 11/24/21 11:05 LDL Cholesterol, Calc 74 mg/dL (0-100) 11/24/21 11:05 HDL Cholesterol 25 mg/dL (40-60) L 11/24/21 11:05 Cholesterol/HDL Ratio 4.6 (0.0-5.0) 11/24/21 11:05 Specimen Type Random urine 11/24/21 23:10 Urine Color Yellow (YELLOW) 11/24/21 23:10 Urine Appearance Clear (CLEAR) 11/24/21 23:10 Urine pH 6.0 (5.0 - 8.0) 11/24/21 23:10 Ur Specific [place] 1.025 (1.000-1.030) 11/24/21 23:10 Urine Protein Negative (NEGATIVE) 11/24/21 23:10 Urine Glucose (UA) 3+ (NEGATIVE) 11/24/21 23:10 Urine Ketones Negative (NEGATIVE) 11/24/21 23:10 Urine Blood 1+ (NEGATIVE) 11/24/21 23:10 Urine Nitrite Negative (NEGATIVE) 11/24/21 23:10 Urine Bilirubin Negative (NEGATIVE) 11/24/21 23:10 Urine Urobilinogen 1+ (NORMAL) 11/24/21 23:10 Ur Leukocyte Esterase Negative (NEGATIVE) 11/24/21 23:10 Urine RBC 0-2 /HPF (0-3) 11/24/21 23:10 Urine WBC None seen /HPF (0-5) 11/24/21 23:10 Ur Squamous Epith Cells Rare /HPF (NEGATIVE) 11/24/21 23:10 Calcium Oxalate Crystal Moderate /HPF (NEGATIVE) 11/24/21 23:10 Urine Bacteria Negative /HPF (NEGATIVE) 11/24/21 23:10 Urine Mucus Few /HPF (NEGATIVE) 11/24/21 23:10 Ur Culture Indicated? No/not indicated 11/24/21 23:10 SARS-CoV-2 (PCR) Negative (NEGATIVE) 11/24/21 15:34 Review of Systems Constitutional: No Symptoms Reported Eyes: No Symptoms Reported ENT: No Symptoms Reported Respiratory: No Symptoms Reported Cardiovascular: No Symptoms Reported Gastrointestinal: No Symptoms Reported Genitourinary: No Symptoms Reported Musculoskeletal: No Symptoms Reported Skin: No Symptoms Reported Neurological: Weakness and Numbness Physical Exam Vital Signs: Temperature 98.9 F Pulse Rate [Radial] 61 Pulse Rate 69 Respiratory Rate 18 Blood Pressure [Right Arm] 140/72 Blood Pressure [Left Arm] 135/76 Blood Pressure 155/89 O2 Sat by Pulse Oximetry 97 Oriented: Normal Eyes: Normal Ear: Normal Nose: Normal Throat: Normal Respiratory: Clear Throughout Cardiovascular: Normal : Normal Auscultation: Bowel Sounds: Normal Palpation: Normal Tenderness: Normal Skin: Normal Musculoskeletal: Hand (Right hand weak/decreased touch sensation), Leg (Right leg weaker than left) and Sensory Deficit (Right arm right leg and right face) Psychiatric: Normal Mood Description: Calm Speech Pattern: Clear and Appropriate Assessment/Plan (1) Right facial numbness: Status: Acute Plan: Continue the patient on Plavix and aspirin. I will check carotid Dopplers on him in the morning. Blood pressure control continue him on his atorvastatin. (2) Numbness and tingling of right arm and leg: Narrative Support Text: Possible TIA versus CVA we will monitor him for the next day or so to see how he recovers. Status: Acute Plan: Continue Plavix and aspirin, blood pressure control and statin therapy. (3) Essential hypertension: Status: Chronic Plan: Resume home blood pressure medications. (4) Thrombocytopenia: Status: Acute Plan: Platelet counts in the low 100s but is is where the patient normally runs. (5) Hepatitis C: Status: Chronic (6) Hyperlipidemia: Status: Chronic (7) DM type 2 (diabetes mellitus, type 2): Qualifiers: Diabetes mellitus complication status: without complication Diabetes mellitus prison insulin use: with prison use Qualified Code(s): E11.9 - Type 2 diabetes mellitus without complications; Z79.4 - shelter (current) use of insulin Status: Acute Plan: Monitor patient's blood sugars and continue him on his regular diabetic meds. Review H&P Reviewed: Yes Patient was examined?: Yes
--- NOTE | 2021-11-25 08:55 | PCM.PROG ---
Progress Note Progress Note for Day of Date of Exam: 11/25/21 Subjective Subjective: Upon seeing the patient this morning he is resting. When I speak to him he reports he is now having chest pain substernal pressure and some mild shortness of breath. He also reports that his right face is still numb and tingling his right arm is weak and tingling along with his right leg feeling weak and tingling. Concerning his strength in the right arm it is only slightly weaker than the left arm as his right leg compared to his left leg. He has no ptosis of the eyelid no drooping of the corner of the mouth and his tongue does not deviate to one side as it did not yesterday either. Vitals are better this morning his blood pressure is 140/72 O2 sat normal at 97%. Heart rate 61 respirations are 18. Past Medical Family Social History Allergies: Allergies quinapril [From Accupril] Allergy (Verified 01/06/20 10:27) Review of Systems ROS: No change since H&P Vital Signs and I&O's Vital Signs: Temperature 98.9 F Pulse Rate [Radial] 61 Pulse Rate 69 Respiratory Rate 18 Blood Pressure [Right Arm] 140/72 Blood Pressure [Left Arm] 135/76 Blood Pressure 155/89 O2 Sat by Pulse Oximetry 97 Intake and Output: Intake & Output 11/22/21 11/23/21 11/24/21 11/25/21 11:59 11:59 11:59 11:59 Intake Total 1748 / 1748 Balance 1748 / 1748 Physical Exam Oriented: Normal Eyes: Normal Ear: Normal Nose: Normal Throat: Normal Respiratory: Normal Cardiovascular: Normal : Normal Auscultation: Bowel Sounds: Normal Palpation: Normal Tenderness: Normal Skin: Normal Musculoskeletal: Hand (Right hand weak/decreased touch sensation), Leg (Right leg weaker than left) and Sensory Deficit (Right arm right leg and right face) Psychiatric: Normal Mood Description: Calm Affect: Normal Speech Pattern: Clear and Appropriate Laboratory and Diagnostics Result Diagrams: 11/25/21 04:00 11/25/21 04:00 Labs: Laboratory WBC 6.3 X10^3/uL (3.6-10.0) 11/25/21 04:00 RBC 5.22 X10^6/uL (4.7-6.0) 11/25/21 04:00 Hgb 14.9 g/dL (13.5-18.0) 11/25/21 04:00 Hct 43.4 % (42.0-54.0) 11/25/21 04:00 MCV 83.1 fL (80.0-100.0) 11/25/21 04:00 MCH 28.5 pg (27.0-34.0) 11/25/21 04:00 MCHC 34.3 g/dL (33.0-35.0) 11/25/21 04:00 RDW 14.0 % (11.6-16.5) 11/25/21 04:00 Plt Count 127 X10^3/uL (150.0-450.0) L 11/25/21 04:00 MPV 8.9 fL (7.4-11.0) 11/25/21 04:00 Neut % (Auto) 49.5 % (42.0-75.0) 11/25/21 04:00 Lymph % (Auto) 27.6 % (21.0-51.0) 11/25/21 04:00 [place] % (Auto) 16.5 % (0.0-13.0) H 11/25/21 04:00 Eos % (Auto) 6.1 % (0.9-2.9) H 11/25/21 04:00 Baso % (Auto) 0.3 % (0.2-1.0) 11/25/21 04:00 Neut # (Auto) 3.1 x10^3/uL (2.2-4.8) 11/25/21 04:00 Lymph # (Auto) 1.7 X10^3/uL (1.3-2.9) 11/25/21 04:00 [place] # (Auto) 1.0 x10^3/uL (0.3-0.8) H 11/25/21 04:00 Eos # (Auto) 0.4 x10^3/uL (0.0-0.2) H 11/25/21 04:00 Baso # (Auto) 0.0 X10^3/uL (0.0-0.1) 11/25/21 04:00 Absolute Nucleated RBC 0.1 /100WBC 11/25/21 04:00 PT 14.7 SECONDS (11.8-14.3) 11/25/21 04:00 INR Target Range - 11/25/21 04:00 INR 1.19 (0.8-1.3) 11/25/21 04:00 APTT 28.0 SECONDS (22.9-36.5) 11/25/21 04:00 PTT Comment - 11/25/21 04:00 Fibrinogen 447 mg/dL (239-489) 11/24/21 11:05 Sodium 137 mmol/L (136-145) 11/25/21 04:00 Corrected Sodium 139 mmol/L (136-145) 11/25/21 04:00 Potassium 4.0 mmol/L (3.5-5.1) 11/25/21 04:00 Chloride 104 mmol/L (98-107) 11/25/21 04:00 Carbon Dioxide 28.0 mmol/L (21-32) 11/25/21 04:00 BUN 15 mg/dL (7-18) 11/25/21 04:00 Creatinine 0.75 mg/dL (0.70-1.30) 11/25/21 04:00 Est GFR (MDRD) Af Amer > 60 (>60) 11/25/21 04:00 Est GFR (MDRD) Non-Af > 60 (>60) 11/25/21 04:00 Glucose 184 mg/dL (65-99) H 11/25/21 04:00 POC Glucose (mg/dL) 148 mg/dL (65-99) H 11/25/21 05:52 Calcium 8.1 mg/dL (8.5-10.1) L 11/25/21 04:00 Corrected Calcium 9.1 mg/dL (8.5-10.1) 11/25/21 04:00 Magnesium 1.8 mg/dL (1.7-2.9) 11/25/21 04:00 Total Bilirubin 0.30 mg/dL (0.2-1.0) 11/25/21 04:00 AST 49 Units/L (15-37) H 11/25/21 04:00 ALT 66 Units/L (12-78) 11/25/21 04:00 Alkaline Phosphatase 91 Units/L (46-116) 11/25/21 04:00 Creatine Kinase 47 Units/L (39-308) 11/25/21 04:10 CK-MB (CK-2) 1.3 ng/mL (0-4.0) 11/25/21 04:10 CK/CKMB % Calc 2.8 % (<4) 11/25/21 04:10 Troponin I High Sens 8.1 ng/L (4.0-60.0) 11/25/21 04:10 Total Protein 6.5 g/dL (6.4-8.2) 11/25/21 04:00 Albumin 2.7 g/dL (3.4-5.0) L 11/25/21 04:00 Globulin 3.8 g/dL (2.5-4.5) 11/25/21 04:00 Albumin/Globulin Ratio 0.7 Ratio (1.1-2.1) L 11/25/21 04:00 Triglycerides 81 mg/dL (0-150) 11/24/21 11:05 Cholesterol 115 mg/dL (0-200) 11/24/21 11:05 LDL Cholesterol, Calc 74 mg/dL (0-100) 11/24/21 11:05 HDL Cholesterol 25 mg/dL (40-60) L 11/24/21 11:05 Cholesterol/HDL Ratio 4.6 (0.0-5.0) 11/24/21 11:05 Specimen Type Random urine 11/24/21 23:10 Urine Color Yellow (YELLOW) 11/24/21 23:10 Urine Appearance Clear (CLEAR) 11/24/21 23:10 Urine pH 6.0 (5.0 - 8.0) 11/24/21 23:10 Ur Specific [place] 1.025 (1.000-1.030) 11/24/21 23:10 Urine Protein Negative (NEGATIVE) 11/24/21 23:10 Urine Glucose (UA) 3+ (NEGATIVE) 11/24/21 23:10 Urine Ketones Negative (NEGATIVE) 11/24/21 23:10 Urine Blood 1+ (NEGATIVE) 11/24/21 23:10 Urine Nitrite Negative (NEGATIVE) 11/24/21 23:10 Urine Bilirubin Negative (NEGATIVE) 11/24/21 23:10 Urine Urobilinogen 1+ (NORMAL) 11/24/21 23:10 Ur Leukocyte Esterase Negative (NEGATIVE) 11/24/21 23:10 Urine RBC 0-2 /HPF (0-3) 11/24/21 23:10 Urine WBC None seen /HPF (0-5) 11/24/21 23:10 Ur Squamous Epith Cells Rare /HPF (NEGATIVE) 11/24/21 23:10 Calcium Oxalate Crystal Moderate /HPF (NEGATIVE) 11/24/21 23:10 Urine Bacteria Negative /HPF (NEGATIVE) 11/24/21 23:10 Urine Mucus Few /HPF (NEGATIVE) 11/24/21 23:10 Ur Culture Indicated? No/not indicated 11/24/21 23:10 SARS-CoV-2 (PCR) Negative (NEGATIVE) 11/24/21 15:34 Plan (1) Right facial numbness: Status: Acute Plan: Continue the patient on Plavix and aspirin. I will check carotid Dopplers on him in the morning. Blood pressure control continue him on his atorvastatin. Patient is to have a carotid Doppler at this point. I will follow with the results later today. (2) Numbness and tingling of right arm and leg: Status: Acute Plan: Continue Plavix and aspirin, blood pressure control and statin therapy. (3) Essential hypertension: Status: Chronic Plan: Resume home blood pressure medications. (4) Thrombocytopenia: Status: Acute Plan: Platelet counts in the low 100s but is is where the patient normally runs. (5) Hepatitis C: Status: Chronic (6) Hyperlipidemia: Status: Chronic (7) DM type 2 (diabetes mellitus, type 2): Status: Acute Qualifiers: Diabetes mellitus complication status: without complication Diabetes mellitus nursing home insulin use: with nursing home use Qualified Code(s): E11.9 - Type 2 diabetes mellitus without complications; Z79.4 - bed bug exterminator (current) use of insulin Plan: Monitor patient's blood sugars and continue him on his regular diabetic meds. (8) Chest pain: Status: Acute Plan: We will check serial EKGs and cardiac enzymes every 6 hours x4 sets. Patient sees home sales consultant Dr. Gold here and [facility]. I will have him see the patient tomorrow and is here for consultation.
[2021-11-25] MEDS: ASPIRIN PO SCH (08:58)
[2021-11-25] MEDS ORDERED: PLAVIX PO SCH (09:00)
[2021-11-25] MEDS: PLAVIX PO SCH (09:50)
[2021-11-25] MEDS: LOVENOX INJ 30 MG SYR SC SCH ×2 (10:04→21:39)
[2021-11-25] MEDS: NovoLIN R (or HumuLIN R) SUBCUT PRN ×3 (12:16→21:39)
[2021-11-25 14:46] LABS: CKMB % 1.9 % (<4); CREATINE KINASE 54 Units/L (39-308); CREATINE KINASE MB < 1.0 ng/mL (0-4.0)
[2021-11-25] MEDS ORDERED: XANAX PO PRN (14:48)
[2021-11-25] MEDS ORDERED: ZANAFLEX PO PRN (14:48)
[2021-11-25] MEDS: ROXICODONE TAB 5 MG PO PRN (18:07)
[2021-11-25 20:18] LABS: CKMB % 2.5 % (<4); CREATINE KINASE 40 Units/L (39-308); CREATINE KINASE MB < 1.0 ng/mL (0-4.0)
--- NOTE | 2021-11-25 20:40 | VAS ---
HISTORY: Concern for carotid artery stenosis. CVA, hypertension, and diabetes.EXAM: BILATERAL DOPPLER CAROTID ULTRASOUND EXAMTechnique: Multiple lima scale and color flow Doppler images of the right and left carotid arterial system were obtained.The vertebral arterial system was evaluated as well.Findings: Nonocclusive color flow Doppler is seen throughout the right and left carotid arterial system. No hemodynamically significant carotid arterial stenosis is seen based on velocity criteria. There is [id number] bilateral carotid atherosclerosis and mixed atherosclerotic plaque formation of the bilateral carotid bulbs and ICAs with associated intimal thickening but [without] evidence for high-grade stenosis (>70%) or occlusion of the carotid arteries. The right and left vertebral artery demonstrate antegrade flow.IMPRESSION:[id number] bilateral carotid atherosclerosis and mixed atherosclerotic plaque formation of the bilateral carotid bulbs and [in both] ICAs with associated carotid intimal thickening but without evidence for high-grade stenosis or occlusion of the carotid arteries, based on Doppler velocity criteria. Appropriate, antegrade, vertebral arterial flow.Peak right ICA velocity: 108 centimeter/seconds.Peak right CCA velocity: 99 centimeter/seconds.Peak left ICA velocity: 88 centimeter/seconds.Peak left CCA velocity: 111 centimeter/seconds.Right ICA to CCA ratio: 2.8.Left ICA to CCA ratio: 2.8.Electronically signed by: MICHEAL CABRALES III (Nov 25, 2021 20:38:26)
[2021-11-25] MEDS ORDERED: FLOMAX PO SCH (21:00)
[2021-11-25] MEDS: SNACK - Diabetic Appropriate PO SCH (21:31)
[2021-11-26] MEDS: ROXICODONE TAB 5 MG PO PRN ×2 (00:26→09:29)
[2021-11-26 05:34] LABS: BASOPHILS % (AUTO) 0.5 % (0.2-1.0); EOSINOPHILS # (AUTO) 0.3 x10^3/uL (0.0-0.2); EOSINOPHILS % (AUTO) 4.9 % (0.9-2.9); HEMATOCRIT 40.8 % (42.0-54.0); HEMOGLOBIN 13.9 g/dL (13.5-18.0); LYMPHOCYTES # (AUTO) 2.1 X10^3/uL (1.3-2.9); LYMPHOCYTES % (AUTO) 30.9 % (21.0-51.0); MEAN CORPUSCULAR HEMOGLOBIN 28.3 pg (27.0-34.0); MEAN CORPUSCULAR HGB CONC 34.2 g/dL (33.0-35.0); MEAN CORPUSCULAR VOLUME 82.8 fL (80.0-100.0); MEAN PLATELET VOLUME 9.1 fL (7.4-11.0); MONOCYTES # (AUTO) 1.1 x10^3/uL (0.3-0.8); NEUTROPHILS # (AUTO) 3.2 x10^3/uL (2.2-4.8); NEUTROPHILS % (AUTO) 47.7 % (42.0-75.0); RED BLOOD COUNT 4.93 X10^6/uL (4.7-6.0); RED CELL DISTRIBUTION WIDTH 13.8 % (11.6-16.5); WHITE BLOOD COUNT 6.7 X10^3/uL (3.6-10.0)
[2021-11-26 05:50] LABS: ALANINE AMINOTRANSFERASE 69 Units/L (12-78); ALBUMIN 2.7 g/dL (3.4-5.0); ALKALINE PHOSPHATASE 82 Units/L (46-116); ASPARTATE AMINO TRANSFERASE 47 Units/L (15-37); BLOOD UREA NITROGEN 14 mg/dL (7-18); CALCIUM 7.9 mg/dL (8.5-10.1); CHLORIDE 103 mmol/L (98-107); COR CA(FOR HYPOALB) 8.9 mg/dL (8.5-10.1); COR NA(FOR HYPERGLY) 138 mmol/L (136-145); CREATININE 0.74 mg/dL (0.70-1.30); SODIUM 136 mmol/L (136-145); TOTAL PROTEIN 6.4 g/dL (6.4-8.2); eGFR NON BLACK RACES > 60 (>60)
[2021-11-26] MEDS ORDERED: PROTONIX TAB 40 MG PO SCH (09:00)
[2021-11-26] MEDS ORDERED: DIOVAN TAB 160 MG PO SCH (09:00)
[2021-11-26] MEDS ORDERED: CELEBREX PO SCH (09:00)
--- NOTE | 2021-11-26 09:12 | PCM.PROG ---
Progress Note Progress Note for Day of Date of Exam: 11/26/21 Subjective Subjective: The patient is alert and awake this morning. He reports that he still has some mild chest discomfort. Shortness of breath is improved. Cardiac enzymes are reviewed from yesterday and the troponins are negative x4 sets. EKGs are also reviewed and they continue to show lead III and lead aVF with inverted T waves consistent with inferior ischemic changes. I am awaiting cardiology consultation per Dr. Gold later this morning. Regarding the patient's right facial numbness right arm numbness and weakness and right leg numbness and weakness has completely resolved. His strength is equal now in both upper extremities and lower extremities. Carotid Dopplers were done yesterday and reviewed which showed mild to moderate carotid bulb plaque Without significant stenosis. Past Medical Family Social History Allergies: Allergies quinapril [From Accupril] Allergy (Verified 01/06/20 10:27) Review of Systems ROS: No change since H&P Vital Signs and I&O's Vital Signs: Temperature 98.1 F Pulse Rate [Radial] 68 Pulse Rate 69 Respiratory Rate 18 Blood Pressure [Right Arm] 145/83 Blood Pressure [Left Arm] 135/76 Blood Pressure 155/89 O2 Sat by Pulse Oximetry 97 Intake and Output: Intake & Output 11/23/21 11/24/21 11/25/21 11/26/21 11:59 11:59 11:59 11:59 Intake Total 1748 / 1748 3193 / 3193 Balance 1748 / 1748 3193 / 3193 Physical Exam Oriented: Normal Eyes: Normal Ear: Normal Nose: Normal Throat: Normal Respiratory: Normal Cardiovascular: Normal : Normal Auscultation: Bowel Sounds: Normal Tenderness: Normal Skin: Normal Musculoskeletal: Hand (Right hand weak/decreased touch sensation), Leg (Right leg weaker than left) and Sensory Deficit (Right arm right leg and right face) Psychiatric: Normal Mood Description: Calm Affect: Normal Speech Pattern: Clear and Appropriate Laboratory and Diagnostics Result Diagrams: 11/26/21 05:15 11/26/21 05:15 Labs: Laboratory WBC 6.7 X10^3/uL (3.6-10.0) 11/26/21 05:15 RBC 4.93 X10^6/uL (4.7-6.0) 11/26/21 05:15 Hgb 13.9 g/dL (13.5-18.0) 11/26/21 05:15 Hct 40.8 % (42.0-54.0) L 11/26/21 05:15 MCV 82.8 fL (80.0-100.0) 11/26/21 05:15 MCH 28.3 pg (27.0-34.0) 11/26/21 05:15 MCHC 34.2 g/dL (33.0-35.0) 11/26/21 05:15 RDW 13.8 % (11.6-16.5) 11/26/21 05:15 Plt Count 145 X10^3/uL (150.0-450.0) L 11/26/21 05:15 MPV 9.1 fL (7.4-11.0) 11/26/21 05:15 Neut % (Auto) 47.7 % (42.0-75.0) 11/26/21 05:15 Lymph % (Auto) 30.9 % (21.0-51.0) 11/26/21 05:15 [place] % (Auto) 16.0 % (0.0-13.0) H 11/26/21 05:15 Eos % (Auto) 4.9 % (0.9-2.9) H 11/26/21 05:15 Baso % (Auto) 0.5 % (0.2-1.0) 11/26/21 05:15 Neut # (Auto) 3.2 x10^3/uL (2.2-4.8) 11/26/21 05:15 Lymph # (Auto) 2.1 X10^3/uL (1.3-2.9) 11/26/21 05:15 [place] # (Auto) 1.1 x10^3/uL (0.3-0.8) H 11/26/21 05:15 Eos # (Auto) 0.3 x10^3/uL (0.0-0.2) H 11/26/21 05:15 Baso # (Auto) 0.0 X10^3/uL (0.0-0.1) 11/26/21 05:15 Absolute Nucleated RBC 0.0 /100WBC 11/26/21 05:15 PT 14.7 SECONDS (11.8-14.3) 11/25/21 04:00 INR Target Range - 11/25/21 04:00 INR 1.19 (0.8-1.3) 11/25/21 04:00 APTT 28.0 SECONDS (22.9-36.5) 11/25/21 04:00 PTT Comment - 11/25/21 04:00 Fibrinogen 447 mg/dL (239-489) 11/24/21 11:05 Sodium 136 mmol/L (136-145) 11/26/21 05:15 Corrected Sodium 138 mmol/L (136-145) 11/26/21 05:15 Potassium 3.5 mmol/L (3.5-5.1) 11/26/21 05:15 Chloride 103 mmol/L (98-107) 11/26/21 05:15 Carbon Dioxide 27.0 mmol/L (21-32) 11/26/21 05:15 BUN 14 mg/dL (7-18) 11/26/21 05:15 Creatinine 0.74 mg/dL (0.70-1.30) 11/26/21 05:15 Est GFR (MDRD) Af Amer > 60 (>60) 11/26/21 05:15 Est GFR (MDRD) Non-Af > 60 (>60) 11/26/21 05:15 Glucose 201 mg/dL (65-99) H 11/26/21 05:15 POC Glucose (mg/dL) 172 mg/dL (65-99) H 11/26/21 05:35 Calcium 7.9 mg/dL (8.5-10.1) L 11/26/21 05:15 Corrected Calcium 8.9 mg/dL (8.5-10.1) 11/26/21 05:15 Magnesium 1.8 mg/dL (1.7-2.9) 11/25/21 04:00 Total Bilirubin 0.30 mg/dL (0.2-1.0) 11/26/21 05:15 AST 47 Units/L (15-37) H 11/26/21 05:15 ALT 69 Units/L (12-78) 11/26/21 05:15 Alkaline Phosphatase 82 Units/L (46-116) 11/26/21 05:15 Creatine Kinase 40 Units/L (39-308) 11/25/21 19:45 CK-MB (CK-2) < 1.0 ng/mL (0-4.0) 11/25/21 19:45 CK/CKMB % Calc 2.5 % (<4) 11/25/21 19:45 Troponin I High Sens 6.5 ng/L (4.0-60.0) 11/25/21 19:45 Total Protein 6.4 g/dL (6.4-8.2) 11/26/21 05:15 Albumin 2.7 g/dL (3.4-5.0) L 11/26/21 05:15 Globulin 3.7 g/dL (2.5-4.5) 11/26/21 05:15 Albumin/Globulin Ratio 0.7 Ratio (1.1-2.1) L 11/26/21 05:15 Triglycerides 81 mg/dL (0-150) 11/24/21 11:05 Cholesterol 115 mg/dL (0-200) 11/24/21 11:05 LDL Cholesterol, Calc 74 mg/dL (0-100) 11/24/21 11:05 HDL Cholesterol 25 mg/dL (40-60) L 11/24/21 11:05 Cholesterol/HDL Ratio 4.6 (0.0-5.0) 11/24/21 11:05 Specimen Type Random urine 11/24/21 23:10 Urine Color Yellow (YELLOW) 11/24/21 23:10 Urine Appearance Clear (CLEAR) 11/24/21 23:10 Urine pH 6.0 (5.0 - 8.0) 11/24/21 23:10 Ur Specific [place] 1.025 (1.000-1.030) 11/24/21 23:10 Urine Protein Negative (NEGATIVE) 11/24/21 23:10 Urine Glucose (UA) 3+ (NEGATIVE) 11/24/21 23:10 Urine Ketones Negative (NEGATIVE) 11/24/21 23:10 Urine Blood 1+ (NEGATIVE) 11/24/21 23:10 Urine Nitrite Negative (NEGATIVE) 11/24/21 23:10 Urine Bilirubin Negative (NEGATIVE) 11/24/21 23:10 Urine Urobilinogen 1+ (NORMAL) 11/24/21 23:10 Ur Leukocyte Esterase Negative (NEGATIVE) 11/24/21 23:10 Urine RBC 0-2 /HPF (0-3) 11/24/21 23:10 Urine WBC None seen /HPF (0-5) 11/24/21 23:10 Ur Squamous Epith Cells Rare /HPF (NEGATIVE) 11/24/21 23:10 Calcium Oxalate Crystal Moderate /HPF (NEGATIVE) 11/24/21 23:10 Urine Bacteria Negative /HPF (NEGATIVE) 11/24/21 23:10 Urine Mucus Few /HPF (NEGATIVE) 11/24/21 23:10 Ur Culture Indicated? No/not indicated 11/24/21 23:10 SARS-CoV-2 (PCR) Negative (NEGATIVE) 11/24/21 15:34 Plan (1) Right facial numbness: Status: Acute Plan: Continue the patient on Plavix and aspirin. I will check carotid Dopplers on him in the morning. Blood pressure control continue him on his atorvastatin. Patient is to have a carotid Doppler at this point. I will follow with the results later today. (2) Numbness and tingling of right arm and leg: Status: Acute Narrative Support Text: Symptoms have resolved regarding CVA symptoms. The numbness and tingling in the right face arm and leg after have resolved this morning. Also the strength has returned in his right upper extremity and right leg. Plan: Continue Plavix and aspirin, blood pressure control and statin therapy. (3) Essential hypertension: Status: Chronic Narrative Support Text: Blood pressure stable overall with blood pressure 145/83 this morning Plan: Resume home blood pressure medications. (4) Thrombocytopenia: Status: Acute Plan: Platelet counts in the low 100s but is is where the patient normally runs. (5) Hepatitis C: Status: Chronic (6) Hyperlipidemia: Status: Chronic (7) DM type 2 (diabetes mellitus, type 2): Status: Acute Qualifiers: Diabetes mellitus complication status: without complication Diabetes mellitus mcc insulin use: with mcc use Qualified Code(s): E11.9 - Type 2 diabetes mellitus without complications; Z79.4 - termite treater (current) use of insulin Plan: Monitor patient's blood sugars and continue him on his regular diabe tic meds. I will check a hemoglobin A1c this morning. (8) Chest pain: Status: Acute Plan: We will check serial EKGs and cardiac enzymes every 6 hours x4 sets. Patient sees stevedoring superintendent Dr. Gold here and [facility]. I will have him see the patient tomorrow and is here for consultation.
[2021-11-26] MEDS: PLAVIX PO SCH (09:28)
[2021-11-26] MEDS: ASPIRIN PO SCH (09:28)
[2021-11-26] MEDS: LOVENOX INJ 30 MG SYR SC SCH (09:31)
[2021-11-26] MEDS: NS 1,000 ML IV 1,000 ML IV SCH (09:32)
[2021-11-26 12:15] VITALS: BP 131/73
[2021-11-26] MEDS: NovoLIN R (or HumuLIN R) SUBCUT PRN (12:16)
--- NOTE | 2021-11-29 11:31 | PCM.DCPLAN ---
DISCHARGE SUMMARY Admission Date Date of Admission: 11/24/21 Discharge Date Discharge Date: 11/26/21 Admission Diagnoses (1) Right facial numbness: Status: Acute (2) Numbness and tingling of right arm and leg: Status: Acute (3) Essential hypertension: Status: Chronic (4) Thrombocytopenia: Status: Acute (5) Hepatitis C: Status: Chronic (6) Hyperlipidemia: Status: Chronic (7) DM type 2 (diabetes mellitus, type 2): Status: Acute (8) Chest pain: Status: Acute Discharge Diagnoses Discharge Diagnosis: 1. Suspected TIA 2. Right facial numbness resolved 3. Right upper extremity and lower extremity numbness and weakness resolved 4. Chest pain with abnormal EKG 5. History of hepatitis C 6. Chronic thrombocytopenia 7. Hypertension 8. Diabetes mellitus type 2 Discharge Medications Discharge Medications: Home Medication List alprazolam 0.5 mg tablet 0.5 tab PO TID PRN Anxiety 11/24/21 [History] carvedilol 6.25 mg tablet 6.25 tab PO BID 11/24/21 [History] celecoxib 200 mg capsule 200 cap PO DAILY 11/24/21 [History] oxycodone 20 mg tablet 20 tab PO QID PRN Pain 11/24/21 [History] pantoprazole 40 mg tablet,delayed release 40 tab PO DAILY 11/24/21 [History] tizanidine 4 mg tablet 4 tab PO TID PRN Muscle Spasm 11/24/21 [History] valsartan 160 mg tablet 160 tab PO DAILY 11/24/21 [History] aspirin 325 mg tablet (Kd Aspirin) 325 mg PO DAILY #30 tabs 11/26/21 [Rx] atorvastatin 40 mg tablet (Lipitor) 40 mg PO QHS #30 tabs 11/26/21 [Rx] clopidogrel 75 mg tablet (Plavix) 75 mg PO DAILY #30 tabs 11/26/21 [Rx] Prescriptions: aspirin [Kd Aspirin] BEV RICE atorvastatin [Lipitor] BEV RICE clopidogrel [Plavix] BEV RICE Hospital Course Vital Signs: Temperature 98.2 F Pulse Rate [Radial] 66 Pulse Rate 69 Respiratory Rate 18 Blood Pressure [Right Arm] 131/73 Blood Pressure [Left Arm] 135/76 Blood Pressure 155/89 O2 Sat by Pulse Oximetry 94 Latest Lab Results: Laboratory Last Values WBC 6.7 X10^3/uL (3.6-10.0) 11/26/21 05:15 RBC 4.93 X10^6/uL (4.7-6.0) 11/26/21 05:15 Hgb 13.9 g/dL (13.5-18.0) 11/26/21 05:15 Hct 40.8 % (42.0-54.0) L 11/26/21 05:15 MCV 82.8 fL (80.0-100.0) 11/26/21 05:15 MCH 28.3 pg (27.0-34.0) 11/26/21 05:15 MCHC 34.2 g/dL (33.0-35.0) 11/26/21 05:15 RDW 13.8 % (11.6-16.5) 11/26/21 05:15 Plt Count 145 X10^3/uL (150.0-450.0) L 11/26/21 05:15 MPV 9.1 fL (7.4-11.0) 11/26/21 05:15 Neut % (Auto) 47.7 % (42.0-75.0) 11/26/21 05:15 Lymph % (Auto) 30.9 % (21.0-51.0) 11/26/21 05:15 [place] % (Auto) 16.0 % (0.0-13.0) H 11/26/21 05:15 Eos % (Auto) 4.9 % (0.9-2.9) H 11/26/21 05:15 Baso % (Auto) 0.5 % (0.2-1.0) 11/26/21 05:15 Neut # (Auto) 3.2 x10^3/uL (2.2-4.8) 11/26/21 05:15 Lymph # (Auto) 2.1 X10^3/uL (1.3-2.9) 11/26/21 05:15 [place] # (Auto) 1.1 x10^3/uL (0.3-0.8) H 11/26/21 05:15 Eos # (Auto) 0.3 x10^3/uL (0.0-0.2) H 11/26/21 05:15 Baso # (Auto) 0.0 X10^3/uL (0.0-0.1) 11/26/21 05:15 Absolute Nucleated RBC 0.0 /100WBC 11/26/21 05:15 PT 14.7 SECONDS (11.8-14.3) 11/25/21 04:00 INR Target Range - 11/25/21 04:00 INR 1.19 (0.8-1.3) 11/25/21 04:00 APTT 28.0 SECONDS (22.9-36.5) 11/25/21 04:00 PTT Comment - 11/25/21 04:00 Fibrinogen 447 mg/dL (239-489) 11/24/21 11:05 Sodium 136 mmol/L (136-145) 11/26/21 05:15 Corrected Sodium 138 mmol/L (136-145) 11/26/21 05:15 Potassium 3.5 mmol/L (3.5-5.1) 11/26/21 05:15 Chloride 103 mmol/L (98-107) 11/26/21 05:15 Carbon Dioxide 27.0 mmol/L (21-32) 11/26/21 05:15 BUN 14 mg/dL (7-18) 11/26/21 05:15 Creatinine 0.74 mg/dL (0.70-1.30) 11/26/21 05:15 Est GFR (MDRD) Af Amer > 60 (>60) 11/26/21 05:15 Est GFR (MDRD) Non-Af > 60 (>60) 11/26/21 05:15 Glucose 201 mg/dL (65-99) H 11/26/21 05:15 POC Glucose (mg/dL) 299 mg/dL (65-99) H 11/26/21 11:26 Hemoglobin A1c 8.4 % 11/26/21 05:15 Calcium 7.9 mg/dL (8.5-10.1) L 11/26/21 05:15 Corrected Calcium 8.9 mg/dL (8.5-10.1) 11/26/21 05:15 Magnesium 1.8 mg/dL (1.7-2.9) 11/25/21 04:00 Total Bilirubin 0.30 mg/dL (0.2-1.0) 11/26/21 05:15 AST 47 Units/L (15-37) H 11/26/21 05:15 ALT 69 Units/L (12-78) 11/26/21 05:15 Alkaline Phosphatase 82 Units/L (46-116) 11/26/21 05:15 Creatine Kinase 40 Units/L (39-308) 11/25/21 19:45 CK-MB (CK-2) < 1.0 ng/mL (0-4.0) 11/25/21 19:45 CK/CKMB % Calc 2.5 % (<4) 11/25/21 19:45 Troponin I High Sens 6.5 ng/L (4.0-60.0) 11/25/21 19:45 Total Protein 6.4 g/dL (6.4-8.2) 11/26/21 05:15 Albumin 2.7 g/dL (3.4-5.0) L 11/26/21 05:15 Globulin 3.7 g/dL (2.5-4.5) 11/26/21 05:15 Albumin/Globulin Ratio 0.7 Ratio (1.1-2.1) L 11/26/21 05:15 Triglycerides 81 mg/dL (0-150) 11/24/21 11:05 Cholesterol 115 mg/dL (0-200) 11/24/21 11:05 LDL Cholesterol, Calc 74 mg/dL (0-100) 11/24/21 11:05 HDL Cholesterol 25 mg/dL (40-60) L 11/24/21 11:05 Cholesterol/HDL Ratio 4.6 (0.0-5.0) 11/24/21 11:05 Specimen Type Random urine 11/24/21 23:10 Urine Color Yellow (YELLOW) 11/24/21 23:10 Urine Appearance Clear (CLEAR) 11/24/21 23:10 Urine pH 6.0 (5.0 - 8.0) 11/24/21 23:10 Ur Specific [place] 1.025 (1.000-1.030) 11/24/21 23:10 Urine Protein Negative (NEGATIVE) 11/24/21 23:10 Urine Glucose (UA) 3+ (NEGATIVE) 11/24/21 23:10 Urine Ketones Negative (NEGATIVE) 11/24/21 23:10 Urine Blood 1+ (NEGATIVE) 11/24/21 23:10 Urine Nitrite Negative (NEGATIVE) 11/24/21 23:10 Urine Bilirubin Negative (NEGATIVE) 11/24/21 23:10 Urine Urobilinogen 1+ (NORMAL) 11/24/21 23:10 Ur Leukocyte Esterase Negative (NEGATIVE) 11/24/21 23:10 Urine RBC 0-2 /HPF (0-3) 11/24/21 23:10 Urine WBC None seen /HPF (0-5) 11/24/21 23:10 Ur Squamous Epith Cells Rare /HPF (NEGATIVE) 11/24/21 23:10 Calcium Oxalate Crystal Moderate /HPF (NEGATIVE) 11/24/21 23:10 Urine Bacteria Negative /HPF (NEGATIVE) 11/24/21 23:10 Urine Mucus Few /HPF (NEGATIVE) 11/24/21 23:10 Ur Culture Indicated? No/not indicated 11/24/21 23:10 SARS-CoV-2 (PCR) Negative (NEGATIVE) 11/24/21 15:34 Hospital Course: Following admission we will continue the patient on Plavix and aspirin daily. The CT and MRI of the brain did not reveal any evidence of CVA. However this did not explain his right facial right arm and right leg numbness and weakness. Most likely he had a TIA I suspect. He did develop some chest pain the day after admission and because of that we went ahead and consulted Dr. Gold, disability counselor for evaluation. Dr. Joni Gold has been seen the patient as outpatient and will follow-up with him to do further cardiac stress testing. His troponin's were done and they were all negative. On the morning of the [facility] stay he has no problems and will be discharging home in stable condition. His right facial arm and right leg weakness have all resolved and feels normal he reports.
== END 2021-11-26 15:00 | disposition home or self-care (01) ==
LOC: MED/SURG 10:49 → ER 10:49 → MED/SURG 16:30
PROVIDERS: ADMIT Family Medicine; ATTEND Family Medicine
DX: B18.2 Chronic viral hepatitis C; R20.2 Paresthesia of skin; E03.8 Other specified hypothyroidism; Z79.4 Long term (current) use of insulin; I25.10 Atherosclerotic heart disease of native coronary artery without angina pectoris; I10 Essential (primary) hypertension; E78.2 Mixed hyperlipidemia; E11.65 Type 2 diabetes mellitus with hyperglycemia; D69.6 Thrombocytopenia, unspecified; R20.0 Anesthesia of skin; R07.89 Other chest pain; R26.89 Other abnormalities of gait and mobility; R06.02 Shortness of breath; Z20.822 Contact with and (suspected) exposure to COVID-19

== ENCOUNTER 2022-06-27 09:18 | Observation (INO) ==
--- NOTE | 2022-06-27 09:29 | DR.CP ---
HPI Time Seen Time Seen by Provider: 06/27/22 09:28 HPI Comment HPI Comment: PATIENT IS 57YR OLD MALE IN ER WITH SQEEZING SUBSTERNAL CHEST PAIN THAT STARTED THIS AM. PAIN IS NONRADIATING. BP WAS ALSO ELEVATED. HISTORY CAD AND HTN. Complaint Chief Complaint Doctor Comments: CHEST PAIN SINCE THIS AM. COVID-19 Coronavirus risk:travel/contact w/high risk person: No Has patient experienced Coronavirus symptoms: No Reviewed Nurses Notes Review: Yes PMH PMH Past Medical History: Diabetes, Dyslipidemia, Hypertension and Hypothyroidism Past Surgical History: Yes Surgical History: Ortho Surgery Family History Family Medical History: Diabetes Mellitus, Cancer, [place], Coronary Artery Disease, Heart Failure and Hypertension Social History Do you use any recreational Drugs:: No ROS Review of Systems Constitutional: Weakness and Fatigue; negative Fever Eyes: No Symptoms Reported ENTM: Nose Congestion; negative Nose Discharge Respiratoy: Moist Cough and Short of Breath; negative Wheezing Cardiovascular: Chest Pain and Edema Gastrointestinal/Abdominal: Abdominal Pain and Nausea; negative Diarrhea or Vomiting Genitourinary: No Symptoms Reported; negative Dysuria Neurological: Headache and Weakness; negative Dizziness Musculoskeletal: No Symptoms Reported; negative Muscle Pain Integumentary: No Symptoms Reported Hematologic/Lymphatic: Easy Bruising Endocrine: No Symptoms Reported; negative Increased Thirst or Increased Urine Psychiatric: No Symptoms Reported All Other Systems: Reviewed and Negative PE Vitals Vitals: Pulse Rate 80 Respiratory Rate 20 Blood Pressure [Right Arm] 131/73 Blood Pressure [Left Arm] 135/76 Blood Pressure 166/81 O2 Sat by Pulse Oximetry 96 General Limitations: No Limitations General Appearance: Alert and In Distress Head Head Exam: Normal Inspection and Atraumatic Eyes Eye exam: Normal Appearance, PERRL and EOMI; negative Scleral Icterus or Conjunctival Injection ENT ENT Exam: Normal Exam, Normal Oropharynx, Normal External Ear Exam and TM's Normal Bilaterally Chest Chest Inspection: Normal Inspection and Symmetric Chest Wall Rise; negative Tenderness Respiratory Respiratory Exam: Normal Lung Sounds Bilat; negative Accessory Muscle Use, Chest Wall Tenderness or Respiratory Distress Cardiovascular Cardiovascular Exam: Regular Rate, Normal Rhythm and Normal Heart Sounds; negative Systolic Murmur or Diastolic Murmur Abdominal Exam Abdominal Exam: Normal Inspection and Normal Bowel Sounds; negative Tenderness Extremities Extremities Exam: Normal Inspection and Normal Capillary Refill Back Back Exam: Normal Inspection; negative (R) CVA Tenderness or (L) CVA Tenderness Neurologic Neurological Exam: Alert and Oriented X3; negative Motor Sensory Deficit Psychiatric Psychiatric Exam: Normal Affect and Normal Mood Skin Skin Exam: Intact MDM Differential Diagnosis Differential Diagnosis: Angina, CHF, Myocardial Infarction, Pericarditis, P leuritis, Pneumonia, Pneumothorax and Pulmonary Embolus ROR Labs Reviewed Result Diagrams: 06/27/22 09:50 06/27/22 09:50 Laboratory: WBC 6.0 X10^3/uL (3.6-10.0) 06/27/22 09:50 RBC 4.97 X10^6/uL (4.7-6.0) 06/27/22 09:50 Hgb 13.7 g/dL (13.5-18.0) 06/27/22 09:50 Hct 40.9 % (42.0-54.0) L 06/27/22 09:50 MCV 82.4 fL (80.0-100.0) 06/27/22 09:50 MCH 27.6 pg (27.0-34.0) 06/27/22 09:50 MCHC 33.6 g/dL (33.0-35.0) 06/27/22 09:50 RDW 15.5 % (11.6-16.5) 06/27/22 09:50 Plt Count 184 X10^3/uL (150.0-450.0) 06/27/22 09:50 MPV 8.9 fL (7.4-11.0) 06/27/22 09:50 Neut % (Auto) 56.9 % (42.0-75.0) 06/27/22 09:50 Lymph % (Auto) 25.4 % (21.0-51.0) 06/27/22 09:50 [place] % (Auto) 11.9 % (0.0-13.0) 06/27/22 09:50 Eos % (Auto) 4.9 % (0.9-2.9) H 06/27/22 09:50 Baso % (Auto) 0.9 % (0.2-1.0) 06/27/22 09:50 Neut # (Auto) 3.4 x10^3/uL (2.2-4.8) 06/27/22 09:50 Lymph # (Auto) 1.5 X10^3/uL (1.3-2.9) 06/27/22 09:50 [place] # (Auto) 0.7 x10^3/uL (0.3-0.8) 06/27/22 09:50 Eos # (Auto) 0.3 x10^3/uL (0.0-0.2) H 06/27/22 09:50 Baso # (Auto) 0.1 X10^3/uL (0.0-0.1) 06/27/22 09:50 Absolute Nucleated RBC 0.0 /100WBC 06/27/22 09:50 D-Dimer 0.27 ug/ml (0.0-0.57) 06/27/22 09:50 Sodium 136 mmol/L (136-145) 06/27/22 09:50 Corrected Sodium 140 mmol/L (136-145) 06/27/22 09:50 Potassium 3.9 mmol/L (3.5-5.1) 06/27/22 09:50 Chloride 101 mmol/L (98-107) 06/27/22 09:50 Carbon Dioxide 30.0 mmol/L (21-32) 06/27/22 09:50 BUN 16 mg/dL (7-18) 06/27/22 09:50 Creatinine 1.00 mg/dL (0.70-1.30) 06/27/22 09:50 Est GFR (MDRD) Af Amer > 60 (>60) 06/27/22 09:50 Est GFR (MDRD) Non-Af > 60 (>60) 06/27/22 09:50 Glucose 279 mg/dL (65-99) H 06/27/22 09:50 POC Glucose (mg/dL) 264 mg/dL (65-99) H 06/27/22 12:24 Calcium 8.2 mg/dL (8.5-10.1) L 06/27/22 09:50 Corrected Calcium 8.8 mg/dL (8.5-10.1) 06/27/22 09:50 Total Bilirubin 0.40 mg/dL (0.2-1.0) 06/27/22 09:50 AST 36 Units/L (15-37) 06/27/22 09:50 ALT 46 Units/L (12-78) 06/27/22 09:50 Alkaline Phosphatase 80 Units/L (46-116) 06/27/22 09:50 Creatine Kinase 95 Units/L (39-308) 06/27/22 12:20 Troponin I High Sens 10.1 ng/L (4.0-60.0) 06/27/22 12:20 B-Natriuretic Peptide 39.0 pg/mL (0-79) 06/27/22 09:50 Total Protein 7.2 g/dL (6.4-8.2) 06/27/22 09:50 Albumin 3.3 g/dL (3.4-5.0) L 06/27/22 09:50 Globulin 3.9 g/dL (2.5-4.5) 06/27/22 09:50 Albumin/Globulin Ratio 0.8 Ratio (1.1-2.1) L 06/27/22 09:50 SARS-CoV-2 (PCR) Negative (NEGATIVE) 06/27/22 11:13 Influenza Type A (PCR) Negative (NEGATIVE) 06/27/22 11:13 Influenza Type B (PCR) Negative (NEGATIVE) 06/27/22 11:13 RSV (PCR) Negative (NEGATIVE) 06/27/22 11:13 EKG Rate: 82 [place]: LAD Rhythm: NSR Block: None Hypertrophy: LVH ST: Nonsp Opioid Opioid Risk Tool Age (Ward box if 16-45): No History of Preadolescent Sexual Abuse: No Total: 0 Total Score Risk Category: Low Risk Copyright: [facility] predicting aberrant behaviors Discharge Plan Diagnosis Discharge Problem: Chest pain, Hypertension Discharge Plan Patient Disposition: ADMITTED INPATIENT Condition: Stable Discharge Comment: RETURN TO ER IF WORSE. Orders to Discharge Patient Discharge Orders: Discharge (Routine); Ordered 06/27/22 Ordered By: NIRMAL TRIVEDI Transfer (Routine); Ordered 06/27/22 Ordered By: NIRMAL TRIVEDI
[2022-06-27 09:31] VITALS: BMI 33.3
[2022-06-27] MEDS ORDERED: NITROSTAT SL PRN (09:33)
[2022-06-27] MEDS ORDERED: ASPIRIN 81 MG CHEWTAB PO ONE (09:36)
[2022-06-27] MEDS ORDERED: NITROSTAT ONE (09:38)
[2022-06-27] MEDS ORDERED: ASPIRIN 81 MG CHEWTAB ONE (09:39)
--- NOTE | 2022-06-27 09:55 | EKG ---
Test Reason : chest pain Blood Pressure : */* mmHG Vent. Rate : 82 BPM Atrial Rate : 82 BPM P-R Int : 124 ms QRS Dur : 110 ms QT Int : 396 ms P-R-T Axes : 53 -36 23 degrees QTc Int : 462 ms Normal sinus rhythm Left axis deviation Minimal voltage criteria for LVH, may be normal variant ( R in aVL ) Abnormal ECG No previous ECGs available Confirmed by Donte Gold ([id number]) on 06/27/2022 3:11:34 PM Referred By: Confirmed By: Donte Gold
[2022-06-27 10:30] LABS: MEAN CORPUSCULAR HGB CONC 33.6 g/dL (33.0-35.0); RED CELL DISTRIBUTION WIDTH 15.5 % (11.6-16.5)
[2022-06-27 10:33] LABS: BASOPHILS # (AUTO) 0.1 X10^3/uL (0.0-0.1); BASOPHILS % (AUTO) 0.9 % (0.2-1.0); EOSINOPHILS # (AUTO) 0.3 x10^3/uL (0.0-0.2); EOSINOPHILS % (AUTO) 4.9 % (0.9-2.9); HEMATOCRIT 40.9 % (42.0-54.0); HEMOGLOBIN 13.7 g/dL (13.5-18.0); LYMPHOCYTES # (AUTO) 1.5 X10^3/uL (1.3-2.9); LYMPHOCYTES % (AUTO) 25.4 % (21.0-51.0); MEAN CORPUSCULAR HEMOGLOBIN 27.6 pg (27.0-34.0); MEAN CORPUSCULAR VOLUME 82.4 fL (80.0-100.0); MEAN PLATELET VOLUME 8.9 fL (7.4-11.0); MONOCYTES # (AUTO) 0.7 x10^3/uL (0.3-0.8); MONOCYTES % (AUTO) 11.9 % (0.0-13.0); NEUTROPHILS # (AUTO) 3.4 x10^3/uL (2.2-4.8); NEUTROPHILS % (AUTO) 56.9 % (42.0-75.0); RED BLOOD COUNT 4.97 X10^6/uL (4.7-6.0)
--- NOTE | 2022-06-27 10:41 | RAD ---
HISTORYChest painSTUDYPortable AP chestCOMPARISONNovember 2021FINDINGSContinued normal heart size and contour with clear lungs and pleural spaces.IMPRESSIONNo change; no acute findings.Electronically signed by: FELICITY ALEJO (Jun 27, 2022 10:39:31)
[2022-06-27 10:44] LABS: ALANINE AMINOTRANSFERASE 46 Units/L (12-78); ALBUMIN 3.3 g/dL (3.4-5.0); ALKALINE PHOSPHATASE 80 Units/L (46-116); ASPARTATE AMINO TRANSFERASE 36 Units/L (15-37); BLOOD UREA NITROGEN 16 mg/dL (7-18); CALCIUM 8.2 mg/dL (8.5-10.1); CHLORIDE 101 mmol/L (98-107); COR CA(FOR HYPOALB) 8.8 mg/dL (8.5-10.1); COR NA(FOR HYPERGLY) 140 mmol/L (136-145); CREATINE KINASE 109 Units/L (39-308); SODIUM 136 mmol/L (136-145); TOTAL PROTEIN 7.2 g/dL (6.4-8.2); eGFR NON BLACK RACES > 60 (>60)
[2022-06-27] MEDS ORDERED: TORADOL 30 MG VIAL IVP ONE (11:07)
[2022-06-27] MEDS ORDERED: TORADOL 30 MG VIAL ONE (11:08)
[2022-06-27] MEDS ORDERED: PEPCID TAB 40 MG PO ONE (11:53)
[2022-06-27] MEDS ORDERED: PEPCID TAB 40 MG ONE (11:54)
[2022-06-27] MEDS ORDERED: NovoLIN R (or HumuLIN R) SC PRN (15:03)
[2022-06-27] MEDS ORDERED: PATIENT'S HOME MEDICATION (Oxycodone 20 mg tablet) PO PRN (15:03)
[2022-06-27] MEDS ORDERED: NovoLIN R (or HumuLIN R) SUBCUT PRN ×2 (16:00)
[2022-06-27] MEDS: NS 1,000 ML IV 1,000 ML IV SCH (16:32)
[2022-06-27] MEDS: ZANAFLEX PO SCH ×2 (16:33→21:32)
[2022-06-27] MEDS ORDERED: SNACK - Diabetic Appropriate PO SCH (20:00)
[2022-06-27] MEDS ORDERED: PATIENT'S HOME MEDICATION (Insulin Detemir U-100 [Levemir Flextouch U-100 Insuln] 100 unit SUBCUT SCH (21:00)
[2022-06-27] MEDS ORDERED: ISOSORBIDE DINITRATE 10 MG PO SCH (21:00)
[2022-06-27] MEDS ORDERED: LEVEMIR SC SCH (21:00)
[2022-06-27] MEDS: ISOSORBIDE DINITRATE PO SCH (21:28)
[2022-06-27] MEDS: COREG TAB 6.25 MG PO SCH (21:29)
[2022-06-27] MEDS: PEPCID TAB 40 MG PO SCH (21:29)
[2022-06-27] MEDS: ROXICODONE TAB 5 MG PO PRN (22:42)
[2022-06-28] MEDS: NS 1,000 ML IV 1,000 ML IV SCH (04:45)
[2022-06-28] MEDS: ZANAFLEX PO SCH (05:01)
[2022-06-28] MEDS: ROXICODONE TAB 5 MG PO PRN (05:01)
[2022-06-28 06:35] LABS: BASOPHILS # (AUTO) 0.1 X10^3/uL (0.0-0.1); BASOPHILS % (AUTO) 1.5 % (0.2-1.0); EOSINOPHILS # (AUTO) 0.3 x10^3/uL (0.0-0.2); EOSINOPHILS % (AUTO) 4.4 % (0.9-2.9); HEMATOCRIT 38.8 % (42.0-54.0); HEMOGLOBIN 13.2 g/dL (13.5-18.0); LYMPHOCYTES # (AUTO) 1.9 X10^3/uL (1.3-2.9); LYMPHOCYTES % (AUTO) 23.5 % (21.0-51.0); MEAN CORPUSCULAR HEMOGLOBIN 27.9 pg (27.0-34.0); MEAN CORPUSCULAR HGB CONC 33.9 g/dL (33.0-35.0); MEAN CORPUSCULAR VOLUME 82.1 fL (80.0-100.0); MONOCYTES # (AUTO) 0.7 x10^3/uL (0.3-0.8); MONOCYTES % (AUTO) 9.4 % (0.0-13.0); NEUTROPHILS # (AUTO) 4.8 x10^3/uL (2.2-4.8); NEUTROPHILS % (AUTO) 61.2 % (42.0-75.0); RED BLOOD COUNT 4.72 X10^6/uL (4.7-6.0); RED CELL DISTRIBUTION WIDTH 15.6 % (11.6-16.5); WHITE BLOOD COUNT 7.9 X10^3/uL (3.6-10.0)
[2022-06-28 06:43] LABS: ALANINE AMINOTRANSFERASE 42 Units/L (12-78); ALKALINE PHOSPHATASE 70 Units/L (46-116); ASPARTATE AMINO TRANSFERASE 32 Units/L (15-37); BLOOD UREA NITROGEN 14 mg/dL (7-18); CALCIUM 8.1 mg/dL (8.5-10.1); CARBON DIOXIDE 28.1 mmol/L (21-32); CHLORIDE 107 mmol/L (98-107); COR CA(FOR HYPOALB) 8.9 mg/dL (8.5-10.1); COR NA(FOR HYPERGLY) 143 mmol/L (136-145); CREATININE 0.78 mg/dL (0.70-1.30); SODIUM 142 mmol/L (136-145); TOTAL PROTEIN 6.6 g/dL (6.4-8.2); eGFR NON BLACK RACES > 60 (>60)
[2022-06-28 07:00] LABS: PLATELET MORPHOLOGY COMMENT NORMAL (NORMAL)
[2022-06-28] MEDS ORDERED: PROTONIX TAB 40 MG PO SCH (09:00)
[2022-06-28] MEDS ORDERED: CELEBREX PO SCH (09:00)
[2022-06-28] MEDS ORDERED: DIOVAN TAB 160 MG PO SCH (09:00)
[2022-06-28] MEDS ORDERED: NovoLIN N or HumuLIN N SC SCH (09:00)
[2022-06-28] MEDS ORDERED: PLAVIX PO SCH (09:00)
[2022-06-28] MEDS ORDERED: LIPITOR TAB 40 MG PO SCH (09:00)
[2022-06-28] MEDS: ISOSORBIDE DINITRATE PO SCH (09:24)
[2022-06-28] MEDS: COREG TAB 6.25 MG PO SCH (09:24)
[2022-06-28] MEDS: PEPCID TAB 40 MG PO SCH (09:27)
[2022-06-28 09:34] VITALS: BP 121/69
--- NOTE | 2022-06-28 14:57 | DR.SSS ---
SHORT STAY SUMMARY Admission Date Date of Admission: 06/27/22 Discharge Date Discharge Date: 06/28/22 Admission Diagnoses Admission Diagnoses: 1. Chest pain 2. History of coronary artery disease 3. Hypertensionuncontrolled 4. Diabetes mellitus type 2 5. Hypothyroidism 6. History of dyslipidemia 7. History of chronic back pain with history of 4 back surgeries 8. History of chronic right hip pain Discharge Diagnoses Discharge Diagnoses: 1. Chest pain resolved 2. Hypertension stable 3. History of coronary artery disease stable 4. Diabetes mellitus type 2 5. History of hypothyroidism 6. History of dyslipidemia 7. Chronic back pain with history of 4 back surgeries. 8. Chronic right hip pain Chief Complaint Chief Complaint: Chest pain History of Present Illness History of Present Illness: This is a pleasant 57-year-old white male well-known to me. He does have a history of coronary artery disease. He has had some stenting done earlier in 2021. Yesterday morning he developed substernal chest pain that did not resolve with pain medicine or nitroglycerin. He got anxious and scared because of this and decided come on to the emergency department. In the emergency department he was given some more nitro and he reported that this did help relieve some of his chest pressure. The first set of cardiac enzymes were done and were normal. EKG was done did not show any acute ST elevation or depression or inverted T waves. Given his history of coronary disease and his story would like to go ahead admitted for observation to do serial cardiac enzymes to rule out any further development of myocardial infarction or angina. This morning he reports that chest pain is resolved. His blood pressure is back to normal after being very elevated coming into the emergency department last night. D-dimer was done in the emergency department last night and it was normal effectively ruling out possibility of a PE. Past Medical History Past Medical History: Diabetes, Dyslipidemia, Hypertension and Hypothyroidism Past Surgical History Surgical History: Angioplasty/Stents Allergies Allergies Allergy/AdvReac Type Severity Reaction Status Date / Time MARIA G Inhibitors Allergy Unknown Verified 02/09/20 11:59 quinapril [From Accupril] Allergy Verified 01/06/20 10:27 Medications Home Medications: MARIA G Inhibitors Allergy (Unknown, Verified 02/09/20 11:59) quinapril [From Accupril] Allergy (Verified 01/06/20 10:27) CONTINUE taking the following medications atorvastatin 40 mg tablet 1 tab PO QDAY 06/27/22 [History] carvedilol 6.25 mg tablet 1 tab PO BID 06/27/22 [History] celecoxib 200 mg capsule 1 cap PO QDAY 06/27/22 [History] clopidogrel 75 mg tablet 1 tab PO QDAY 06/27/22 [History] famotidine 40 mg tablet 1 tab PO BID 06/27/22 [History] insulin NPH isoph U-100 human 100 unit/mL subcutaneous suspension (Humulin N NPH U-100 Insulin (isophane susp)) 45 unit subcut DAILY 06/27/22 [History] insulin detemir U-100 100 unit/mL (3 mL) subcutaneous pen (Levemir FlexTouch U- 100 Insulin) 50 unit subcut HS 06/27/22 [History] insulin regular human 100 unit/mL injection solution (Humulin R Regular U-100 Insulin) 100 sliding scale dose subcut PRN PRN 06/27/22 [History] isosorbide dinitrate 10 mg tablet 1 tab PO BID 06/27/22 [History] oxycodone 20 mg tablet 20 tab PO PRN PRN 06/27/22 [History] pantoprazole 40 mg tablet,delayed release 1 tab PO QDAY 06/27/22 [History] testosterone cypionate 200 mg/mL intramuscular oil 200 mg IM WEEKLY 06/27/22 [History] tizanidine 4 mg tablet 1 tab PO TID 06/27/22 [History] valsartan 160 mg tablet 1 tab PO QDAY 06/27/22 [History] Family History Family Medical History: Diabetes Mellitus, SD and Hypertension Social History Does patient currently use any type of tobacco product: No Have you used tobacco products in the last 12 months: No Type of Tobacco Use: None Does any household member use tobacco: No Alcohol Use: None Drug Use: None Review of Systems Constitutional: No Symptoms Reported Eyes: No Symptoms Reported ENT: No Symptoms Reported Respiratory: No Symptoms Reported Cardiovascular: Chest Pain and Other (Substernal pressure) Gastrointestinal: No Symptoms Reported Genitourinary: No Symptoms Reported Musculoskeletal: Back Pain and Other (Right hip pain) Skin: No Symptoms Reported Neurological: No Symptoms Reported Physical Exam Vital Signs: Last Vital Signs Temp 97.6 F 06/28/22 08:00 Pulse 59 L 06/28/22 08:00 Resp 20 06/28/22 08:00 BP 121/69 06/28/22 08:00 Pulse Ox 98 06/28/22 08:00 O2 Del Method Nasal Cannula 06/28/22 08:27 O2 Flow Rate 2 06/28/22 08:27 FiO2 28 06/28/22 08:27 Oriented: Normal, Time, Person and Place Eyes: Normal Nose: Normal Throat: Normal Respiratory: Clear Throughout Cardiovascular: Normal Auscultation: Bowel Sounds: Normal Palpation: Normal Tenderness: Normal Skin: Normal Musculoskeletal: Right, Hip and Back:Lumbar Psychiatric: Normal Mood Description: Calm Affect: Normal Speech Pattern: Clear and Appropriate Labs Labs: Laboratory Last Values WBC 7.9 X10^3/uL (3.6-10.0) 06/28/22 06:24 RBC 4.72 X10^6/uL (4.7-6.0) 06/28/22 06:24 Hgb 13.2 g/dL (13.5-18.0) L 06/28/22 06:24 Hct 38.8 % (42.0-54.0) L 06/28/22 06:24 MCV 82.1 fL (80.0-100.0) 06/28/22 06:24 MCH 27.9 pg (27.0-34.0) 06/28/22 06:24 MCHC 33.9 g/dL (33.0-35.0) 06/28/22 06:24 RDW 15.6 % (11.6-16.5) 06/28/22 06:24 Plt Count 154 X10^3/uL (150.0-450.0) 06/28/22 06:24 Plt Count Comment Adequate (ADEQUATE) 06/28/22 06:24 MPV 9.0 fL (7.4-11.0) 06/28/22 06:24 Neut % (Auto) 61.2 % (42.0-75.0) 06/28/22 06:24 Lymph % (Auto) 23.5 % (21.0-51.0) 06/28/22 06:24 [place] % (Auto) 9.4 % (0.0-13.0) 06/28/22 06:24 Eos % (Auto) 4.4 % (0.9-2.9) H 06/28/22 06:24 Baso % (Auto) 1.5 % (0.2-1.0) H 06/28/22 06:24 Neut # (Auto) 4.8 x10^3/uL (2.2-4.8) 06/28/22 06:24 Lymph # (Auto) 1.9 X10^3/uL (1.3-2.9) 06/28/22 06:24 [place] # (Auto) 0.7 x10^3/uL (0.3-0.8) 06/28/22 06:24 Eos # (Auto) 0.3 x10^3/uL (0.0-0.2) H 06/28/22 06:24 Baso # (Auto) 0.1 X10^3/uL (0.0-0.1) 06/28/22 06:24 Absolute Nucleated RBC 0.1 /100WBC 06/28/22 06:24 Total Counted 100 06/28/22 06:24 Neutrophils % (Manual) 63 % (39-76) 06/28/22 06:24 Lymphocytes % (Manual) 25 % (13-43) 06/28/22 06:24 Monocytes % (Manual) 8 % (4-9) 06/28/22 06:24 Eosinophils % (Manual) 4 % (0-6) 06/28/22 06:24 Plt Morphology Comment Normal (NORMAL) 06/28/22 06:24 RBC Morphology Normal (NORMAL) 06/28/22 06:24 D-Dimer 0.27 ug/ml (0.0-0.57) 06/27/22 09:50 Sodium 142 mmol/L (136-145) 06/28/22 06:24 Corrected Sodium 143 mmol/L (136-145) 06/28/22 06:24 Potassium 4.0 mmol/L (3.5-5.1) 06/28/22 06:24 Chloride 107 mmol/L (98-107) 06/28/22 06:24 Carbon Dioxide 28.1 mmol/L (21-32) 06/28/22 06:24 BUN 14 mg/dL (7-18) 06/28/22 06:24 Creatinine 0.78 mg/dL (0.70-1.30) 06/28/22 06:24 Est GFR (MDRD) Af Amer > 60 (>60) 06/28/22 06:24 Est GFR (MDRD) Non-Af > 60 (>60) 06/28/22 06:24 Glucose 129 mg/dL (65-99) H 06/28/22 06:24 POC Glucose (mg/dL) 123 mg/dL (65-99) H 06/28/22 06:33 Calcium 8.1 mg/dL (8.5-10.1) L 06/28/22 06:24 Corrected Calcium 8.9 mg/dL (8.5-10.1) 06/28/22 06:24 Total Bilirubin 0.50 mg/dL (0.2-1.0) 06/28/22 06:24 AST 32 Units/L (15-37) 06/28/22 06:24 ALT 42 Units/L (12-78) 06/28/22 06:24 Alkaline Phosphatase 70 Units/L (46-116) 06/28/22 06:24 Creatine Kinase 86 Units/L (39-308) 06/27/22 16:52 Troponin I High Sens 9.4 ng/L (4.0-60.0) 06/27/22 16:52 B-Natriuretic Peptide 39.0 pg/mL (0-79) 06/27/22 09:50 Total Protein 6.6 g/dL (6.4-8.2) 06/28/22 06:24 Albumin 3.0 g/dL (3.4-5.0) L 06/28/22 06:24 Globulin 3.6 g/dL (2.5-4.5) 06/28/22 06:24 Albumin/Globulin Ratio 0.8 Ratio (1.1-2.1) L 06/28/22 06:24 SARS-CoV-2 (PCR) Negative (NEGATIVE) 06/27/22 11:13 Influenza Type A (PCR) Negative (NEGATIVE) 06/27/22 11:13 Influenza Type B (PCR) Negative (NEGATIVE) 06/27/22 11:13 RSV (PCR) Negative (NEGATIVE) 06/27/22 11:13 Assessment/Plan (1) Chest pain: 1: Check serial cardiac enzymes to rule out SD. (2) Essential hypertension: 1: Resume patient's home blood pressure medicines. (3) Hepatitis C: (4) DM type 2 (diabetes mellitus, type 2): 1: Slight scale regular insulin per protocol. (5) Coronary artery disease: 1: Check serial cardiac enzymes. Hospital Course Hospital Course: He does notSince admission last night the patient has been chest pain-free. Little apprehensive this morning and part of his problem may be from underlying anxiety. I reviewed the patient's troponins and labs. All his troponins were normal. EKG was reviewed showed that he did not have any acute ST T changes. He has no T wave inversion as well. He does have a nurse esthetician, Dr. Gold here in [place], [place]. I will be arranging for the patient to follow-up with me later this week so I can start him on something for anxiety in the meantime. Also will refer him back to his nurse esthetician for further cardiac evaluation and treatment given his symptoms and history of coronary artery disease. He does note he did have a abnormal walking stress test in April [address] [facility] [address] Gold. According to the patient he has not had any coronary intervention since the abnormal stress test. Patient will be discharged home this morning stable condition. He is told that if his symptoms should return for tomorrow to come to the ER for further evaluation. And after he gets on tomorrow if he needs to come in to see me to go ahead and call my office tomorrow so I can make arrangements for him to come on in to be seen again as an outpatient. Discharge medications patient will resume his regular home medicines as before. No new prescriptions today at this time. Discharge Medications Discharge Medications: Home Medication List atorvastatin 40 mg tablet 1 tab PO QDAY 06/27/22 [History] carvedilol 6.25 mg tablet 1 tab PO BID 06/27/22 [History] celecoxib 200 mg capsule 1 cap PO QDAY 06/27/22 [History] clopidogrel 75 mg tablet 1 tab PO QDAY 06/27/22 [History] famotidine 40 mg tablet 1 tab PO BID 06/27/22 [History] insulin NPH isoph U-100 human 100 unit/mL subcutaneous suspension (Humulin N NPH U-100 Insulin (isophane susp)) 45 unit subcut DAILY 06/27/22 [History] insulin detemir U-100 100 unit/mL (3 mL) subcutaneous pen (Levemir FlexTouch U- 100 Insulin) 50 unit subcut HS 06/27/22 [History] insulin regular human 100 unit/mL injection solution (Humulin R Regular U-100 Insulin) 100 sliding scale dose subcut PRN PRN 06/27/22 [History] isosorbide dinitrate 10 mg tablet 1 tab PO BID 06/27/22 [History] oxycodone 20 mg tablet 20 tab PO PRN PRN 06/27/22 [History] pantoprazole 40 mg tablet,delayed release 1 tab PO QDAY 06/27/22 [History] testosterone cypionate 200 mg/mL intramuscular oil 200 mg IM WEEKLY 06/27/22 [History] tizanidine 4 mg tablet 1 tab PO TID 06/27/22 [History] valsartan 160 mg tablet 1 tab PO QDAY 06/27/22 [History] Prescriptions: Discharge Disposition Discharge Disposition: Patient is discharged home in stable condition this morning. Discharge Plan Discharge Plan Patient Disposition: HOME, SELF-CARE Condition: Stable Health Concerns: Post Hospitalization: new medications and changes needed to prevent readmission or further decline. Pt educated and given instructions on all concerns. Plan of Treatment: Continue with present treatment and follow up plan. Pt is to keep follow up appointment as instructed and take medications as ordered. Prescriptions: No Action celecoxib 200 mg capsule 1 cap PO QDAY isosorbide dinitrate 10 mg tablet 1 tab PO BID atorvastatin 40 mg tablet 1 tab PO QDAY carvedilol 6.25 mg tablet 1 tab PO BID tizanidine 4 mg tablet 1 tab PO TID famotidine 40 mg tablet 1 tab PO BID clopidogrel 75 mg tablet 1 tab PO QDAY pantoprazole 40 mg tablet,delayed release (DR/EC) 1 tab PO QDAY testosterone cypionate 200 mg/mL oil 200 mg IM WEEKLY valsartan 160 mg tablet 1 tab PO QDAY Levemir FlexTouch U-100 Insuln 100 unit/mL (3 mL) insulin pen 50 unit SUBCUT HS Label Comments: [NO ORIGINAL SIG] oxycodone 20 mg tablet 20 tab PO PRN PRN Humulin R Regular U-100 Insuln 100 unit/mL solution 100 sliding scale dose subcut PRN PRN Label Comments: [NO ORIGINAL SIG] Humulin N NPH U-100 Insulin 100 unit/mL suspension 45 unit SUBCUT DAILY Label Comments: [NO ORIGINAL SIG] Orders to Discharge Patient Discharge Orders: Discharge (Routine); Ordered 06/28/22 Ordered By: BEV RICE Follow ups/Referrals Follow ups/Referrals: BEV RICE [Primary Care Provider] - 3 DAYS Instructions Instructions: Nonspecific Chest Pain, Adult, Z[place]-pi-Dize, Hypertension Stand Alone Forms: Excuse From Work or School
== END 2022-06-28 11:05 | disposition home or self-care (01) ==
LOC: MED/SURG 09:18 → ER 09:18 → MED/SURG 14:32
PROVIDERS: ADMIT Family Medicine; ATTEND Family Medicine
DX: M25.551 Pain in right hip; B18.2 Chronic viral hepatitis C; Z79.4 Long term (current) use of insulin; I10 Essential (primary) hypertension; I25.10 Atherosclerotic heart disease of native coronary artery without angina pectoris; Z20.822 Contact with and (suspected) exposure to COVID-19; R07.89 Other chest pain; M54.89 Other dorsalgia; E78.2 Mixed hyperlipidemia; E03.8 Other specified hypothyroidism; E11.65 Type 2 diabetes mellitus with hyperglycemia